=== PATIENT | female | born 1955 | race Caucasian/White ===

== ENCOUNTER 2023-01-05 18:25 | Emergency (ER) | payer MEDICARE, SELFPAY ==
[2023-01-05 18:35] VITALS: BP 150/88; PULSE 96; RESP 20; TEMP 38.7; O2SAT 100
--- NOTE | 2023-01-05 18:37 | ED.FEMALEGU ---
HPI - Female Genitourinary General Chief complaint: Urogenital-Female Stated complaint: Back pain; fever; polyuria; dysuria Time Seen by Provider: 01/05/23 18:38 History of Present Illness HPI Narrative: patient presents with symptom of urinary tract infection dysuria frequent urination urinary urgency no flank pain no gross hematuria no pelvic pain . Patient states she has been feeling bad for 4 weeks. Patient denies a history of kidney stones but does have bilateral flank pain at times. That radiates around to the abdomen. Related Data Home Medications Medication Instructions Recorded Confirmed metoprolol tartrate 50 mg tablet 50 mg PO BID 01/05/23 01/05/23 Allergies Allergy/AdvReac Type Severity Reaction Status Date / Time No Known Allergies Allergy Verified 01/05/23 18:37 Review of Systems Review of Systems: CONSTITUTIONAL: Denies fever, chills, or sweats. EYES: Denies visual changes, redness, or discharge. ENT: Denies rhinorrhea, congestion, sore throat, or otalgia. CARDIOVASCULAR: Denies chest pain, palpitations, or edema. RESPIRATORY: Denies cough or dyspnea. GASTROINTESTINAL: Denies abdominal pain, nausea, vomiting, or diarrhea. GENITOURINARY: Denies dysuria or hematuria. SKIN: Denies rash or itching. MUSCULOSKELETAL: Denies back pain, joint pain, or myalgia. NEUROLOGIC: Denies headache, numbness, or weakness. PSYCHIATRIC: Denies anxiety or depression. PMFSH Comments At time of signature, agree with nursing past medical, surgical, social and family history. There is no relevant family history pertinent to the presenting complaint Exam Narrative: GENERAL: Well-appearing, well-nourished, and in no acute distress. HEAD: Normocephalic, atraumatic. EYES: PERRLA and EOMI. ENT: Nares clear, no rhinorrhea or epistaxis. Mucous membranes moist. NECK: Supple. CHEST: Clear to auscultation. No respiratory distress. HEART: Regular rate and rhythm. No murmur heard. Normal peripheral pulses. ABDOMEN: Soft, nontender, nondistended, normal active bowel sounds. left sided flank pain that radiates to llq. patient carol lizarraga to emergency department discussed s/s to monitor for kidney stone and to strain all urine. EXTREMITIES: Normal range of motion. No edema. SKIN: Warm, dry, no rash. NEURO: No focal deficits. Alert and oriented x3. [place] Coma Scale Eye Opening: Spontaneous 4 [place] Coma Scale Motor: Obeys Commands 6 [place] Coma Scale Verbal: Oriented 5 [place] Coma Scale Total 15 Course Course Level of Care: Express Care Visit Vital Signs Vital signs: Vital Signs Temperature 38.7 C H 01/05/23 18:35 Pulse Rate 96 01/05/23 18:35 Respiratory Rate 20 01/05/23 18:35 Blood Pressure 150/88 H 01/05/23 18:35 Pulse Oximetry 100 01/05/23 18:35 Oxygen Delivery Room Air 01/05/23 18:35 Temperature 38.7 C H 01/05/23 18:35 Pulse Rate 96 01/05/23 18:35 Respiratory Rate 20 01/05/23 18:35 Blood Pressure 150/88 H 01/05/23 18:35 Pulse Oximetry 100 01/05/23 18:35 Oxygen Delivery Room Air 01/05/23 18:35 Please FLAQUITO schedule a followup visit with your personal physician for further evaluation and treatment. Including recheck and discussion of your blood pressure. If your symptoms persist, change or worsen significantly before you can contact your personal physician then please, without delay, go to the emergency department for further evaluation Discussed with patient hypertension. Today's blood pressure higher than recommended range. Discussed importance of follow -up with PCP and CV events related to HTN. Currently patient denies headache, vision changes, CP or shortness of breath. Patient states she has not taken her blood pressure medication yet today. Patient states usually takes it at night. Patient declines transfer to emergency room at this time. Patient states she will follow-up with her primary care provider and if symptoms become worse she will go the emergency room f
== END 2023-01-05 19:00 | disposition home or self-care (01) ==
PROVIDERS: Emergency Provider Nurse Practitioner Family; PCP Nurse Practitioner Family
DX: N39.0 Urinary tract infection, site not specified (principal); I10 Essential (primary) hypertension; E03.9 Hypothyroidism, unspecified
CPT/HCPCS: 81003; 87086; 99203; G0463

== ENCOUNTER 2025-05-20 13:09 | Emergency (ER) | payer MEDICARE, SELFPAY ==
--- OUTSIDE RECORDS SUMMARY | 2025-05-20 13:12 | XMS_ITS | Clinical Summary ---
Author Organization [address] Address [address] [place] [phone] Care Team Providers Care Stabilizing Machine Operator Name Role Phone Sasha Haile Primary Care Prov ider Allergies Active Allergy Reactions Criticality Noted Date Comments Lisinopril Swelling Medium 07/13/2018 Swelling of face Medications levothyroxine (SYNTHROID, LEVOTHROID) 150 mcg tablet Take 125 mcg by mouth restaurant operations manager before breakfast Active metoprolol (LOPRESSOR) 50 mg tablet Take 1 tablet (50 mg total) by mouth daily Active albuterol HFA (PROVENTIL HFA,VENTOLIN HFA,PROAIR HFA) 90 mcg/actuation inhaler 2 puffs every 4 (four) hours as needed 2 Active Eliquis 5 mg tablet TAKE 1 TABLET BY MOUTH TWICE DAILY FOR AFIB 3 Active benzocaine-menthoL 15-2.6 mg lozenge 1 lozenge every 4 (four) hours as needed 8 Active omeprazole (PriLOSEC) 20 mg capsule Take 1 capsule (20 mg total) by mouth daily As needed 3 Active ondansetron ODT (ZOFRAN-ODT) 4 mg disintegrating tablet 3 Active polyethylene glycol (MIRALAX) 17 gram/dose powder Take 17 g by mouth 2 (two) times a day as needed 3 Active senna (SENOKOT) 8.6 mg tablet Take 8.6 mg by mouth 2 (two) times a day as needed 3 Active Active Problems Problem Noted Date Diagnosed Date Regular check-up 08/20/2023 Paroxysmal atrial fibrillation 08/20/2023 Hypertension 01/28/2023 Graves disease 01/28/2023 Dysphagia 01/28/2023 Overview (01/28/2023): Added automatically from request for surgery [id number] Screening for colon cancer 01/28/2023 Overview (01/28/2023): Added automatically from request for surgery [id number] Abdominal pain 01/16/2023 Assessment & Plan (01/28/2023 2:17 PM CDT): Screening colonoscopy and egd Pancreatic cyst 01/16/2023 Urinary tract infection 01/16/2023 Atrial fibrillation with RVR 01/15/2023 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 (02/15/2017): TOX DIF GOITER NO CRISIS Menopausal and postmenopausal disorder 4 Overview (02/14/2017): MENOPAUSAL DISORDER NOS Anxiety state 03/27/2014 Overview (02/15/2017): ANXIETY STATE NOS Postablative hypothyroidism 03/27/2014 Overview (02/15/2017): POSTABLAT HYPOTHYR NEC Surgical History Surgery Date Site/Laterality Comments HYSTERECTOMY 1985 Hysterectomy COLOSTOMY 02/08/2023 Medical History Medical History Date Comments Thyroid disease Hypertension Family History Medical History Relation Name Comments Anuerysm Father Aneurysm; Other Father ; Cause of : Heart failure Mother Congestive hea rt failure; Cause of : Congestive heart failure Thyroid disease Other 1 Family histo ry of Thyroid disorder; Other Other 2 No family histo ry of Coronary artery disease; Other Other 3 No family histo ry of Diabetes mellitus; Other Other 4 No family histo ry of Stroke; Other Other 5 No family histo ry of Cancer; Relation Name Status Comments Father (Age 96) Mother (Age 80) Other 1 Other 2 Other 3 Other 4 Other 5 Social History Tobacco Use Types Packs/Day Years Used Date Smoking Tobacco: Former Cigarettes Smokeless Tobacco: Never Tobacco Cessation:Counseling Given: Not Answered Alcohol Use Standard Drinks/Week Comments Yes 0 (1 standard drink = 0.6 oz pur e alcohol) AUDIT-C Answer Date Recorded Q1: How often do you have a drink containing alc ohol? Monthly or less 10/27/2024 Q2: How many drinks containi ng alcohol do you have on a typical day when you are drinking? 1 or 2 10/27/2024 Q3: How often do you have si x or more drinks on one occasion? Less than monthly 10/27/2024 Personal Safety Answer Date Recorded Have you ever been in or are you currently in a harmful physical or emotional relationship or is someone making you feel afraid or unsafe? Denies 02/08/2023 Comments Unknown Sex and Gender Information Value Date Recorded Sex Assigned at Not on file Legal Sex Female 12:49 AM POLITICAL CONSULTANT Gender Identity Not on file Sexual Orientation Not on file Obstetrics History Last Filed Vital Signs Vital Sign Reading Time Taken Comments Blood Pressure 112/73 12/22/2024 10:04 AM POLITICAL CONSULTANT Pulse 60 12/22/2024 10:04 AM POLITICAL CONSULTANT Temperature 36.8 C (98.3 F) 02/08/2023 11:29 AM CDT Respiratory Rate 16 03/28/2023 9:45 AM CDT Oxygen Saturation 98% 03/28/2023 9:45 AM CDT Inhaled Oxygen Concentration - - Weight 64.9 kg (143 lb) 12/22/2024 10:04 AM POLITICAL CONSULTANT Height 176.5 cm (5' 9.5) 12/22/2024 10:04 AM CS T Body Mass Index 20.81 12/22/2024 10:04 AM POLITICAL CONSULTANT Plan of Treatment Health Maintenance Due Date Last Done Comments Breast Cancer Screening-Mammogram 1955 Depression Screening 1955 Hepatitis C Screening 1955 Hepatitis B Screening 1975 Pneumococcal vaccine 65+ (1 of 1 - PCV) 2007 Zoster Vaccine (1 of 2) 2007 DTaP/Tdap/Td Vaccine (2 - Td or Tdap) 11/11/202111/2011 Well Visit 65+ 2022 Fall Risk Assessment 02/09/2024 02/08/2023 Influenza Vaccine (Season Ended) 2025 Osteoporosis Screening-Bone Density Scan 10/06/2026 10/06/2024, 10/06/2024 Colon Cancer Screening-Colonoscopy 02/08/20332022 Colon Cancer Screening-CT Colonography Discontinued Colon Cancer Screening-DNA Stool Discontinued 02/09/20 Colon Cancer Screening-FIT Discontinued 02/08/2023 Colon Cancer Screening-Sigmoidoscopy Discontinued 01/11 Procedures Procedure Name Priority Date/Time Associated Diagnosis Comments COLONOSCOPY 02/08/2023 9:54 AM CDT from Last 3 Months or Most Recently Relevant to Health Maintenance Results * COLONOSCOPY (02/08/2023 9:54 AM CDT) Anatomical Region Laterality Modality Other Narrative Procedure Note Job Joyner MD - 02/08/2023 9:54 AM CDT [facility] Patient Name: Sully Martines Procedure Date: 02/08/2023 9:54 AM Date of : 1955 Admit Type: Outpatient Age: 67 Gender: Female Attending MD: Job Joyner M.D. Room: [facility] ENDOSCOPY ROOM 2 Note Status: Finalized Patient Profile: Refer to note in patient chart for documentation of history and physical. Procedure: Colonoscopy Indications: Screening for colorectal malignant neoplasm, Thisis the patient's first colonoscopy Referring MD: Manjula Contreras NP Providers: Job Joyner M.D. Impression: - Hemorrhoids found on perianal exam. - One 5 mm polyp in the descending colon, removedwith a cold snare. Resected and retrieved. - Diverticulosis in the sigmoid colon. - The examination was otherwise normal. Recommendation: - Discharge patient to home. - Resume previous diet. - Continue present medications. - Resume Eliquis (apixaban) at prior dose in 5days. - [facility] - Return to primary care physician as previously scheduled. Medicines: Propofol total dose mg IV, Propofol perAnesthesia Complications: No immediate complications. Estimated Blood Loss: Estimated blood loss: none. Procedure: Pre-Anesthesia Assessment: - This assessment was completed [Time ofAssessment] prior to the administration of sedation. The benefits, risks and alternatives of theprocedure and sedation were discussed and informed consentwas obtained. All questions were answered. Please referto the signed informed consent document in the medical record. The bowel preparation used was Miralax via split dose instruction. The bowel preparation usedwas bisacodyl tablets via split dose instruction. The scope was passed under direct vision. TheColonoscope [id number] was introduced through the anus and advanced to the the cecum, identified by appendiceal orifice and ileocecal valve. The colonoscopy was performed without difficulty. The patient tolerated the procedure well. The qualityof the bowel preparation was good. The ileocecalvalve, appendiceal orifice, and rectum werephotographed. Findings: Hemorrhoids were found on perianal exam. A 5 mm polyp was found in the descending colon. The polyp wassessile. The polyp was removed with a cold snare. Resection and retrieval were complete. Verification of patient identification for the specimen was done by the physician and nurse using the patient's name and birthdate. Estimated blood loss was minimal. Multiple small-mouthed diverticula were found in the sigmoid colon. The exam was otherwise without abnormality. Electronically signed by Job Joyner M.D. Job Joyner M.D. 02/08/2023 11:00:43 AM Number of Addenda: 0 Note Initiated On: 02/08/2023 9:54 AM Procedure Code(s): --- Professional --- 66122, Colonoscopy, flexible; with removal of tumor(s), polyp(s), or other lesion(s) by snare technique --- Technical --- 54336, Colonoscopy, flexible; with removal of tumor(s), polyp(s), or other lesion(s) by snare technique Diagnosis Code(s): --- Professional --- K57.30, Diverticulosis of large intestine without perforation orabscess without bleeding D12.4, Benign neoplasm of descending colon K64.9, Unspecified hemorrhoids Z12.11, Encounter for screening for malignant neoplasm of colon --- Technical --- K57.30, Diverticulosis of large intestine without perforation orabscess without bleeding D12.4, Benign neoplasm of descending colon K64.9, Unspecified hemorrhoids Z12.11, Encounter for screening for malignant neoplasm of colon CPT copyright 2020 [employer]. All rights reserved. The codes documented in this report are preliminary and upon human resources department supervisor reviewmay be revised to meet current compliance requirements. Recognized by the [place] [employer] for promoting quality in endoscopy Job Joyner MD ENDOSCOPY PROCEDURES Final Re sult from Last 3 Months or Most Recently Relevant to Health Maintenance Insurance [facility] MEDICARE ADVANTAGE Advance Directives For more information, please contact: [phone] * Full Code (Latest Code Status on File) Date Activated Date Inactivated Comments 02/08/2023 9:46 AM 02/08/2023 3:56 PM * Full Code Date Activated Date Inactivated Comments 02/08/2023 9:46 AM 02/08/2023 9:46 AM Care Teams Stabilizing Machine Operator Relationship Specialty Start Date End Date Sasha Haile PA [address] [address] PCP - General Neurosurgery 01/22/25
--- OUTSIDE RECORDS SUMMARY | 2025-05-20 13:12 | XMS_ITS | Encounter Summary ---
Author Organization [facility] Address [address] [place] [address] Phone Care Team Providers Care Valve Fitter Name Role Phone Des York MD Unavailable Sasha Haile PAC Primary Care Pro vider Kalee Escoto APRN, MAT PACKER Unavailable Reyes Moralez MD Unavailable Reason for Visit * Reason Comments Medication Refill Encounter Details Date Type Department Care Team (Late st Contact Info) Description 02/25/2024 Refill [facility] - Internal Medicine - [place] [address] [place] [address] Sasha Haile, PAC [address] [place] [address] Medication Refill Social History Tobacco Use Types Packs/Day Years Used Date Smoking Tobacco: Never Smokeless Tobacco: Never Alcohol Use Standard Drinks/Week Comments Yes 0 (1 standard drink = 0.6 oz pur e alcohol) RARE PHQ-2 Answer Date Recorded Total Score - Questions 1-9 3 01/09 Comments No Sex and Gender Information Value Date Recorded Sex Assigned at Not on file Legal Sex Female 8:04 PM CDT Gender Identity Not on file Sexual Orientation Not on file documented as of this encounter Miscellaneous Notes * Telephone Encounter - Elda Gomez RN - 02/25/2024 10:27 AM CDT Medication failed the protocol, provider to review and approve the medication order if appropriate. Requested Prescriptions Pending Prescriptions Disp Refills busPIRone (BUSPAR) 5 MG Tablet [Pharmacy Med Name: busPIRone HCl 5 MG Oral Tablet] 60 Tablet 0 Sig: Take 1 Tablet by mouth in the morning and at bedtime. Buspirone (6 Month Refill Only) Protocol Failed - 02/25/2024 9:35 AM Failed - Patient has established therapy with Buspirone for at least 6 months Passed - Visit with relevant provider in past 6 months or upcoming 90 days Recent Visits Date Type Provider Dept 01/20/24 Office Visit Sasha Haile PAC [facility] Showing recent visits within past 182 days and meeting all other requirements Future Appointments Date Type Provider Dept 02/27/24 Appointment Sasha Haile PAC [facility] Showing future appointments within next 90 days and meeting all other requirements Passed - Has an encounter in the past 6 months with a depression or anxiety visit diagnosis documented in this encounter Plan of Treatment Upcoming Encounters Date Type Department Care Team (Late st Contact Info) Description 07/21/2025 10:45 AM CDT Office Visit [facility] - Internal Medicine - [place] [address] [place] [address] Sasha Haile PAC [address] [place] [address] documented as of this encounter Visit Diagnoses Not on filedocumented in this encounter Additional Health Concerns Assessment Noted Time PHQ-9 Depression Total Score: 3 01/20/20 24 11:11 AM CDT documented as of this encounter Care Teams Valve Fitter Relationship Specialty Start Date End Date Sasha Haile PAC [address] [place] [address] PCP - General Physician Shipping Manager 01/20/24 Des York MD [address] [address] Consulting Physician Endocrinology 08/28/23 Kalee Escoto APRN, MAT PACKER [address] [place] [address] Nurse Practitioner Advanced Practice Nurse 09/08/24 Reyes Moralez MD [address] [address] Consulting Physician General Surgery 01/20/25 documented as of this encounter
--- OUTSIDE RECORDS SUMMARY | 2025-05-20 13:12 | XMS_ITS | Referral Summary ---
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 Active metoprolol (LOPRESSOR) 50 mg [...] 2 (two) times a day as needed 03/09/202 3 Active Active Problems Problem Noted Date Diagnosed Date Regular check-up 08/20/2023 Paroxysmal atrial fibrillation 08/20/2023 Hypertension 01/28/2023 Graves disease 01/28/2023 Dysphagia 01/28/2023 Overview (01/28/2023): Added automatically from request for surgery [id number] Screening for colon cancer 01/28/2023 Overview (01/28/2023): Added automatically from request for surgery [id number] Abdominal pain 01/16/2023 Assessment & Plan (01/28/2023 2:17 PM CDT): Screening colonoscopy and egd Pancreatic cyst 01/16/2023 Urinary tract infection 01/16/2023 Atrial fibrillation with RVR 01/15/2023 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 (02/15/2017): TOX DIF GOITER NO CRISIS Menopausal and postmenopausal disorder 4 Overview (02/14/2017): MENOPAUSAL DISORDER NOS Anxiety state 03/27/2014 Overview (02/15/2017): ANXIETY STATE NOS Postablative hypothyroidism 03/27/2014 Overview (02/15/2017): POSTABLAT HYPOTHYR NEC Social History Tobacco Use Types Packs/Day Years [...] on file Legal Sex Female 12:49 AM [facility] Gender Identity Not on file Sexual Orientation Not on file Last Filed Vital Signs Vital Sign Reading Time Taken Comments Blood Pressure 112/73 12/22/2024 10:04 AM [facility] Pulse 60 12/22/2024 10:04 AM [facility] Temperature 36.8 C (98.3 F) 02/08/2023 11:29 AM CDT Respiratory Rate 16 03/28/2023 9:45 AM CDT Oxygen Saturation 98% 03/28/2023 9:45 AM CDT Inhaled Oxygen Concentration - - Weight 64.9 kg (143 lb) 12/22/2024 10:04 AM [facility] Height 176.5 cm (5' 9.5) 12/22/2024 10:04 AM CS T Body Mass Index 20.81 12/22/2024 10:04 AM [facility] Plan of Treatment Not on file Procedures Procedure Name Priority Date/Time Associated Diagnosis [...] Female Attending MD: Job Joyner M.D. Room: [facility] ENDOSCOPY ROOM 2 Note Status: Finalized [...] 5days. - Repeat colonoscopy in 10 years forsurveillance. - Return to primary care physician as [...] scope was passed under direct vision. TheColonoscope [id number] was introduced through the anus and advanced [...] 9:54 AM Procedure Code(s): --- Professional --- 73084, Colonoscopy, flexible; with removal of tumor(s), polyp(s), or other lesion(s) by snare technique --- Technical --- 44666, Colonoscopy, flexible; with removal of tumor(s), polyp(s), [...] for malignant neoplasm of colon CPT copyright 202 [employer]. All rights reserved. The codes documented in this report are preliminary and upon health information coder reviewmay be revised to meet current compliance requirements. Recognized by the [place] [employer] for promoting quality in endoscopy Job Joyner MD ENDOSCOPY PROCEDURES Final Re sult from Last 3 Months or Most Recently Relevant to Health Maintenance Insurance [facility] MEDICARE ADVANTAGE Advance Directives For more information, please contact: [phone] * Full Code (Latest Code Status on File) Date Activated Date Inactivated Comments 02/08/2023 9:46 AM 02/08/2023 3:56 PM * Full Code Date Activated Date Inactivated Comments 02/08/2023 9:46 AM 02/08/2023 9:46 AM Care Teams Creel Hand Relationship Specialty Start Date End Date Sasha Haile PA [address] [address] PCP - General Neurosurgery 01/22/25
--- OUTSIDE RECORDS SUMMARY | 2025-05-20 13:12 | XMS_ITS | Encounter Summary ---
Author Organization [facility] Address [address] [place] [address] Phone Care Team Providers Care Starch Mangle Tender Name Role Phone Des York MD Unavailable Sasha Haile PAC Primary Care Pro vider Kalee Escoto APRN, CNP Unavailable Reyes Moralez MD Unavailable Reason for Visit * Reason Onset Date Comments Medication Refill 05/20/2025 Encounter Details Date Type Department Care Team (Late st Contact Info) Description 05/20/2025 Refill [facility] - [place] [address] [place] [address] Sasha Haile, [facility] [address] [place] [address] Medication Refill Social History Tobacco Use Types Packs/Day Years Used Date Smoking Tobacco: Former Cigarettes 2 - 2003 Smokeless Tobacco: Never Alcohol Use Standard Drinks/Week Comments Yes 1 (1 standard drink = 0.6 oz pur e alcohol) 3 times a week [facility] Utilities Answer Date Recorded In the past 12 months has [employer], gas, oil, or water company threatened to shut off services in your home? No 01/12/2025 Social Connection and Isolation Panel Answer Date Recorded In a typical week, how many times do you talk on the phone with family, friends, or neighbors? Never 01/12/2025 Frequency of Social Gatherings with Friends and Family Not on file 01/12/2025 Attends Yazidi Services Not on file 01/12 Active Member of Clubs or Organizations Not on f ile 01/12/2025 Attends Club or Organization Meetings Not on tona e 01/12/2025 Marital Status Not on file 01/12/2025 AUDIT-C Answer Date Recorded Q1: How often do you have a drink containing alc ohol? 2-4 times a month 01/12/2025 Average Number of Drinks Not on file 025 Frequency of Binge Drinking Not on file 02/2025 Overall Financial Resource Strain (CARDIA) Answe r Date Recorded How hard is it for you to pa y for the very basics like food, housing, medical care, and heating? Not very hard 01/12/2025 PHQ-2 Answer Date Recorded Total Score - Questions 1-9 0 07/2024 [facility] - Occupational Stress Questionnaire Answer Date Recorded Do you feel stress - tense, restless, nervous, or anxious, or unable to sleep at night because your mind is troubled all the time - these days? Not at all 01/12/2025 Exercise Vital Sign Answer Date Recorde d On average, how many days pe r week do you engage in moderate to strenuous exercise (like a brisk walk)? 5 days Minutes of Exercise per Session Not on file 01/12/2025 Hunger Vital Sign Answer Date Recorded Within the past 12 months, y ou worried that your food would run out before you got the money to buy more. Never true 01/13/20 25 Ran Out of Food in the Last Year Not on file 01/12/2025 PRAPARE - Transportation Answer Date Re corded In the past 12 months, has l ack of transportation kept you from medical appointments or from getting medications? No 01/12/2025 Lack of Transportation (Non-Medical) Not on file 01/12/2025 Housing Stability Vital Sign Answer Reagan e Recorded In the last 12 months, was t here a time when you were not able to pay the mortgage or rent on time? No 01/12/2025 In the past 12 months, how m any times have you moved where you were living? 0 01/12/2025 At any time in the past 12 m [facility], were you homeless or living in a alf (including now)? No 01/12/2025 Comments No Sex and Gender Information Value Date Recorded Sex Assigned at Not on file Legal Sex Female 8:04 PM CDT Gender Identity Not on file Sexual Orientation Not on file documented as of this encounter Miscellaneous Notes * Telephone Encounter - Elda Gomez RN - 05/20/2025 1:09 PM CDT Per nursing clinical judgement, provider to review and approve the medication(s) order(s) if appropriate. Requested Prescriptions Pending Prescriptions Disp Refills metoprolol tartrate (LOPRESSOR) 50 MG Tablet 180 Tablet 0 Sig: Take 1 Tablet by mouth daily. Beta-Blockers Protocol Passed - 05/20/2025 1:09 PM Passed - BP on record in the past year Clinician-entered: BP Readings from Last 3 Encounters: 01/20/25 (!) 160/100 01/12/25 124/68 10/14/24 124/83 Patient-entered: No data recorded Passed - Visit with relevant provider in past 12 months or upcoming 90 days Recent Visits Date Type Provider Dept 01/12/25 Office Visit Sasha Haile, PAC [facility] [place] 09/29/24 Office Visit Sasha Haile, PAC [facility] [place] 09/23/24 Office Visit Sasha Haile, PAC [facility] [place] 08/19/24 Office Visit Sasha Haile, PAC [facility] [place] Showing recent visits within past 365 days and meeting all other requirements Future Appointments Date Type Provider Dept 07/21/25 Appointment Sasha Haile, PAC [facility] [place] Showing future appointments within next 90 days and meeting all other requirements * Telephone Encounter - Keshia Moreland - 05/20/2025 12:55 PM CDT Med rf Medication - Metoprolol Phone - [phone] [place] [facility] [place] encounter Plan of Treatment Upcoming Encounters Date Type Department Care Team (Late st Contact Info) Description 07/21/2025 10:45 AM CDT [facility] [address] [place] [phone] Sasha Haile, PAC [address] [place] [address] documented as of this encounter Visit Diagnoses Not on filedocumented in this encounter Additional Health Concerns Assessment Noted Time PHQ-9 Depression Total Score: 0 08/19/20 12:59 PM CDT documented as of this encounter Care Teams Starch Mangle Tender Relationship Specialty Start Date End Date Sasha Haile, PAC [address] [place] [address] PCP - General Physician [employer] Vice President 01/20/24 Des York MD [address] [phone] Consulting Physician Endocrinology 08/28/23 Kalee Escoto APRN, BLANKET WASHER [address] [place] [address] Nurse Practitioner Advanced Practice Nurse 09/08/24 Reyes Moralez MD [address] [phone] Consulting Physician General Surgery 01/20/25 documented as of this encounter
--- OUTSIDE RECORDS SUMMARY | 2025-05-20 13:12 | XMS_ITS | Encounter Summary ---
Author Organization [facility] Address [address] [place] [address] Phone Care Team Providers Care Log Turner Name Role Phone Des York MD Unavailable Sasha Haile PAC Primary Care Pro vider Kalee Escoto APRN, SURVEY DIRECTOR Unavailable Reyes Moralez MD Unavailable Reason for Visit * Reason Comments Medication Refill Encounter Details Date Type Department Care Team (Late st Contact Info) Description 04/11/2024 Refill [facility] - Internal [facility] - [place] [address] [place] [address] Sasha Haile, PAC [address] [facility] [place] [address] Medication Refill Social History Tobacco [...] Telephone Encounter - Elda Gomez RN - 04/13/2024 9:20 AM CDT Medication failed the protocol, provider to review and approve the medication order if appropriate. Requested Prescriptions Pending Prescriptions Disp Refills buPROPion (WELLBUTRIN) 150 MG XL tablet [Pharmacy Med Name: buPROPion HCl ER (XL) 150 MG Oral Tablet Extended Release 24 Hour] 90 Tablet 0 Sig: TAKE 1 TABLET BY MOUTH ONCE DAILY IN THE MORNING Bupropion (6 Month Refill Only) Protocol Failed - 04/11/2024 5:29 PM Failed - Patient has established therapy with Bupropion for at least 6 months Passed - Visit with relevant provider in past 6 months or upcoming 90 days Recent Visits Date Type Provider Dept 02/27/24 Office Visit Sasha Haile PAC [facility] 01/20/24 Office Visit Sasha Haile, [place] [facility] [place] Showing recent visits within past 182 days and meeting all other requirements Future Appointments No visits were found meeting these conditions. Showing future appointments within next 90 days and meeting all other requirements Passed - Has an encounter in the past 6 months with a depression or anxiety visit diagnosis documented in this encounter Plan of Treatment Upcoming Encounters Date Type Department Care Team (Late st Contact Info) Description 07/21/2025 10:45 AM CDT Office Visit [facility] - Internal Medicine [place] [address] [place] [address] Sasha Haile PAC [address] [place] [address] documented as of this encounter Visit Diagnoses Not on filedocumented in this encounter Additional Health Concerns Assessment Noted Time PHQ-9 Depression Total Score: 3 01/20/20 24 11:11 AM CDT documented as of this encounter Care Teams Log Turner Relationship Specialty Start Date End Date Sasha Haile PAC [address] [place] [address] PCP - General Physician Data Analyst Report Writer 01/20/24 Des York MD [address] [phone] Consulting Physician Endocrinology 08/28/23 Kalee Escoto APRN, SURVEY DIRECTOR [address] [place] [address] Nurse Practitioner Advanced Practice Nurse 09/08/24 Reyes Moralez MD [address] [phone] Consulting Physician General Surgery 01/20/25 documented as of this encounter
--- OUTSIDE RECORDS SUMMARY | 2025-05-20 13:12 | XMS_ITS | Clinical Summary ---
Author Organization [facility] Address [address] [place] [address] Phone Care Team Providers Care Life Sciences Instructor Name Role Phone Des York MD Unavailable Sasha Haile PAC Primary Care Pro vider Kalee Escoto APRN, VOCATIONAL SCHOOL TEACHER Unavailable Reyes Moralez MD Unavailable Allergies Active Allergy Reactions Criticality Noted Date Comments Lisinopril Swelling 07/13/2018 Swelling of face Wound Dressing Adhesive Unknown 09/08/2024 Medications metoprolol tartrate (LOPRESSOR) 50 MG Tablet Take 50 mg by mouth daily. Active omeprazole (PriLOSEC) 20 MG CAPSULE DELAYED RELEASE Take 1 Capsule by mouth daily. 90 Capsule 3 4 Active sucralfate (CARAFATE) 1 GM TabletIndication s:Gastroesophage al reflux disease, unspecified whether esophagitis present Take 1 Tablet by mouth 3 times daily. 90 Tablet 1 5 Active buPROPion (WELLBUTRIN) 150 MG XL tablet TAKE 1 TABLET BY MOUTH ONCE DAILY IN THE MORNING 90 Tablet 5 Active ondansetron (ZOFRAN-ODT) 4 MG TABLET DISPERSIBLE DISSOLVE 1 TABLET IN MOUTH EVERY 8 HOURS NEEDED FOR NAUSEA-1ST LINE 30 Tablet 5 Active levothyroxine (SYNTHROID) 125 MCG Tablet Take 1 tablet by mouth once daily 90 Tablet 5 Active Active Problems Problem Noted Date Diagnosed Date Screening breast examination 01/12/2025 Overview (01/12/2025): Refusing mammograms Pain in both hands 01/12/2025 Overview (01/12/2025): Followed by ortho Getting injections Hiatal hernia 01/20/2024 Abdominal pain 01/16/2023 Pancreatic cyst 01/16/2023 Overview (01/20/2024): GI follows Urinary tract infection 01/16/2023 COVID-19 virus infection 01/16/2023 Atrial fibrillation with RVR 01/15/2023 Overview (01/20/2024): Resolved CARDIO has followed Eliquis refused Graves disease Overview (01/20/2024): ENDO follows Dr York Hypertension Encounters Date Type Department Care Team Description 05/20/[facility] [address] [place] [address] Sasha Haile, PAC Medication Refill 05/20/2025 [facility] [address] [place] [phone] Sasha Haile, PAC Advice Only 05/19/2025 Telephone [facility] [address] [place] [phone] Sasha Haile, PAC Medication Refill 05/06/2025 Documentation Only [facility] [address], [place] [address] [place] [phone] Selma Valles, OT 04/11/2025 [facility] [address] [place] [phone] Sasha Haile, PAC Medication Refill 04/06/2025 Refill [facility] [place] [address] [facility] [place] [phone] Sasha Haile, PAC Medication Refill 04/01/2025 Refill [facility] - Internal Medicine - [place] [address] [phone] Jere Mulligan MD Medication Refill 02/24/2025 Telephone [facility] - Gastroenterology - [place] [address] [place] [address] Kalee Escoto, POLICE COMMISSIONER, VOCATIONAL SCHOOL TEACHER Results from Last 3 Months Immunizations Immunization Administration Dates Next Due TDAP Vaccine 11/11/2011 Family History Medical History Relation Name Comments No Known Problems Brother No Known Problems Father No Known Problems Mother No Known Problems Sister 1 No Known Problems Sister 2 No Known Problems Sister 3 No Known Problems Sister 4 Relation Name Status Comments Brother Alive Father Maternal Grandfather Maternal Grandmother Mother Paternal Grandfather Paternal Grandmother Sister 1 Sister 2 Alive Sister 3 Alive Sister 4 Alive Son Alive Social History Tobacco Use Types Packs/Day Years Used Date Smoking Tobacco: Former Cigarettes 2 - 2003 Smokeless Tobacco: Never Tobacco Cessation:Counseling Given: Not Answered Alcohol Use Standard Drinks/Week Comments Yes 1 (1 standard drink = 0.6 oz pur e alcohol) 3 times a week [facility] Utilities Answer Date Recorded In the past 12 months has e [employer] gas, oil, or water [employer] threatened to shut off services in your [...] Average Number of Drinks Not on file Frequency of Binge Drinking Not on file 02/2025 Overall Financial Resource Strain (CARDIA) Answe r Date Recorded How hard is it for you to pa y for the very basics like food, housing, medical care, and heating? Not very hard 01/12/2025 PHQ-2 Answer Date Recorded Total Score - Questions 1-9 0 07/2024 [facility] - Occupational Stress [...] any time in the past 12 m [facility], were you homeless or living in a long-term (including now)? No 01/12/2025 Comments No Sex and Gender Information Value Date Recorded Sex Assigned at Not on file Legal Sex Female 8:04 PM CDT Gender Identity Not on file Sexual Orientation Not on file Last Filed Vital Signs Vital Sign Reading Time Taken Comments Blood Pressure 160/100 01/20/2025 1:18 PM CDT Pulse 63 01/20/2025 1:18 PM CDT Temperature 36.2 C (97.2 F) 01/20/2025 1:18 PM CDT Respiratory Rate 16 01/20/2025 1:18 PM CDT Oxygen Saturation 100% 01/20/2025 1:18 PM CDT Inhaled Oxygen Concentration - - Weight 63.5 kg (140 lb) 01/20/2025 1:18 PM CDT Height 179.7 cm (5' 10.75) 01/20/2025 1:18 PM C DT Body Mass Index 19.66 01/20/2025 1:18 PM CDT Plan of Treatment Upcoming Encounters Date Type Department Care Team (Late st Contact Info) Description 07/21/2025 10:45 AM CDT [facility] Visit [facility] - [place] [address] [place] [address] Sasha Haile, [facility] [address] [place] [address] Health Maintenance Due Date Last Done Comments Hepatitis C Virus (HCV) Screening 1957 SARS-COV-2 Immunization (#1) 1962 Zoster Immunization (1 of 2) 1976 Cologuard 2002 Immunochemical Fecal Occult Blood 2002 Td Immunization Every 10 Yea rs (Adults With 1 Tdap) 11/11/2021 11/11/2011 Influenza Immunization (#1) 2025 DEXA Bone Density 10/06/2026 10/06/2024 Respiratory Syncytial Virus (RSV) Immunization (Adult) (1 - 1-dose 75+ series) 2032 Colonoscopy 02/08/2033 02/08/2023 Colorectal Cancer Screening 02/08/2033 DTaP/Tdap/Td Immunization Discontinued 11/11/2011 Hepatitis B Immunization Aged Out No longer eligible based on patient's age to complete this topic Human Papillomavirus (HPV) Immunization Aged Out No longer eligible b ased on patient's age to complete this topic Mammogram Discontinued Meningococcal Immunization (ACWY) Aged Out No longer eligible based on patient's age to complete this topic Pneumococcal Immunization (5 0+ years) Discontinued Rotavirus Immunization Aged Out No lo nger eligible based on patient's age to complete this topic Procedures Procedure Name Priority Date/Time Associated Diagnosis Comments [facility] BONE DENSITOMETRY AXIAL SKELETON Routine 10/06/2024 8:44 AM DIRECTOR CALL Post-menopausal from Last 3 Months or Most Recently Relevant to Health Maintenance Results * [facility] BONE DENSITOMETRY AXIAL SKELETON (10/06/2024 8:44 AM DIRECTOR CALL) Anatomical Region Laterality Modality BODY N/A Computed Radiogr aphy 10/06/2024 5:16 PM DIRECTOR CALL Impressions 10/06/2024 5:18 PM DIRECTOR CALL IMPRESSION: Normal bone mass. REFERENCE: Bone mineral density: T-Score: Normal (T-score above or = -1.0) Low bone mass (T-score between -1.0 and -2.5) replaces the previously used term osteopenia Osteoporosis (T-score = or below -2.5) Z-Score: Within the expected range for age (Z-score above -2.0) Below the expected range for age (Z-score is -2.0 or below) Please see below follow up recommendations. Medical evaluation for secondary causes of low bone mineral density may be appropriate. FRAX is a World Health Organization validated fracture risk assessment tool that calculates a person's 10 year probability of a major osteoporosis related fracture and hip fracture. According to the National Osteoporosis Foundation guidelines, postmenopausal women and men age 50 or older with low bone mass and a 10 year probability of a major osteoporosis related fracture = or greater than 20% or a 10 year probability of a hip fracture = or greater than 3% should be considered for pharmacological treatment for the prevention of osteoporosis. For further information, including treatment recommendations, please refer to the 2019 ISCD Official Positions (http://www.iscd.org) and the NOF's Clinician's Guide to Prevention and Treatment of Osteoporosis (http://www.nof.org/professionals/clinical-guidelines) Narrative 10/06/2024 5:18 PM DIRECTOR CALL EXAM DESCRIPTION: [facility] BONE DENSITOMETRY AXIAL SKELETON REASON FOR STUDY: 68 y/o year old F with given history of: Post-menopausal Track Repair Person/Model: [employer] (S/N [id number]) CLINICAL INFORMATION: Current height: 72 inches Maximum height: 72 inches Weight: 145 pounds Risk factors: Postmenopausal, adult fracture COMPARISON: None available FINDINGS: AP LUMBAR SPINE L1-L4: Total BMD is 1.362 g/cm2 T-score is 1.4 LEFT HIP: Total BMD is 1.026 g/cm2 T-score is 0.1 Femoral neck BMD is 0.942 g/cm2 T-score is -0.7 FRAX: FRAX not reported due to T-scores of hip, femoral neck and/or spine being at or above -1.0 (Normal). THIS IS AN ELECTRONICALLY VERIFIED FINAL REPORT 10/06/2024 5:16 PM - Electronically signed by Benjamin Ogden M.D. MF: NICK Report ID: [id number] Reading Location: [place] [address] Procedure Note Benjamin Ogden MD - 10/06/2024 EXAM DESCRIPTION: [facility] BONE DENSITOMETRY AXIAL SKELETON REASON FOR STUDY: 68 y/o year old F with given history of: Post-menopausal Track Repair Person/Model: [employer] (S/N [id number]) CLINICAL INFORMATION: Current height: 72 inches Maximum height: 72 inches Weight: 145 pounds Risk factors: Postmenopausal, adult fracture COMPARISON: None available FINDINGS: AP LUMBAR SPINE L1-L4: Total BMD is 1.362 g/cm2 T-score is 1.4 LEFT HIP: Total BMD is 1.026 g/cm2 T-score is 0.1 Femoral neck BMD is 0.942 g/cm2 T-score is -0.7 FRAX: FRAX not reported due to T-scores of hip, femoral neck and/or spine being at or above -1.0 (Normal). THIS IS AN ELECTRONICALLY VERIFIED FINAL REPORT 10/06/2024 5:16 PM - Electronically signed by Benjamin ROMERO: NICK Report ID: [id number] Reading Location: [place] [address] IMPRESSION: Normal bone mass. REFERENCE: Bone mineral density: T-Score: Normal (T-score above or = -1.0) Low bone mass (T-score between -1.0 and -2.5) replaces the previously used term osteopenia Osteoporosis (T-score = or below -2.5) Z-Score: Within the expected range for age (Z-score above -2.0) Below the expected range for age (Z-score is -2.0 or below) Please see below follow up recommendations. Medical evaluation for secondary causes of low bone mineral density may be appropriate. FRAX is a World Health Organization validated fracture risk assessment tool that calculates a person's 10 year probability of a major osteoporosis related fracture and hip fracture. According to the National Osteoporosis Foundation guidelines, postmenopausal women and men age 50 or older with low bone mass and a 10 year probability of a major osteoporosis related fracture = or greater than 20% or a 10 year probability of a hip fracture = or greater than 3% should be considered for pharmacological treatment for the prevention of osteoporosis. For further information, including treatment recommendations, please refer to the 2019 ISCD Official Positions (http://www.iscd.org) and the NOF's Clinician's Guide to Prevention and Treatment of Osteoporosis (http://www.nof.org/professionals/clinical-guidelines) Sasha Haile [facility] IMG DEXA ORDERABL ES Final Result from Last 3 Months or Most Recently Relevant to Health Maintenance Insurance [facility]IC[facility] C [facility] Advance Directives * Full Code (Latest Code Status on File) Date Activated Date Inactivated Comments 01/15/2023 11:52 PM 01/17/2023 4:10 PM CPR-Full Rosemary tment: FULL ARREST: Attempt Resuscitation/CPR wit intubation and mechanical ventilation. PRE-ARREST: Use entire range of life support measures to stabilize the patient. Care Teams Life Sciences Instructor Relationship Specialty Start Date End Date Sasha Haile, [facility] [address] [place] [address] PCP - General Physician Director Of Partner Marketing 01/20/24 Des York MD [address] [phone] Consulting Physician Endocrinology 08/28/23 Kalee Escoto APRN, VOCATIONAL SCHOOL TEACHER [address] [place] [address] Nurse Practitioner Advanced Practice Nurse 09/08/24 Reyes Moralez MD [address] [phone] Consulting Physician General Surgery 01/20/25
--- OUTSIDE RECORDS SUMMARY | 2025-05-20 13:12 | XMS_ITS | Data Portability ---
Author Organization [facility] Abel Styles Address [address] [place] [address] Care Team Providers Care Clinical Abstractor Name Role Phone LUCAS, MANJULA Primary Care Provider Unavailabl e Assessment No assessment recorded. Plan of Treatment Reminders Order Date Submit Date Provider Last Modified By Organization Details Last Modified Time Details Appointments None recorded. Lab amylase + lipase, serum 2022 023 [facility], [address] [facility], [facility] [address], [place], [address], 3 10:09:58 TSH, ultra-sen sitive, serum 2022 023 [facility], [address] [facility], [facility], [place], [address], 3 01:45:29 amylase + lipase, serum 2022 023 [facility], [address] [facility], [facility], [place], [address], 3 10:36:56 BNP (B-type natriuret ic peptide), serum or plasma 2022 023 [facility], [address] [facility], [facility], [place], [address], 3 10:36:55 CMP, serum or plasma 2022 023 [facility], [address] [facility], [facility], [place], [address], 3 20:08:39 Referral dermatolo gist referral 2023 024 RODNEY Sanford MD (Dermatology), [address] [facility] , [facility] [address], [place], [address], 4 12:56:33 endocrino logy referral 2022 023 [place] [place], [address] [facility] [address], [place], [address], 3 16:09:57 cardiolog ist referral 2022 023 [facility] Product Support Specialist, 2 [facility] , [facility] [address], [place], [address], 3 14:18:04 Procedures None recorded. Surgeries None recorded. Imaging CT, abdomen, w/wo contrast 2022 023 [place] Issa [facility] (Radiology), [address] [facility] , [place], [address], 3 11:04:47 MRI, abdomen, w/wo contrast - Needs open MRI 2022 023 [facility], [address], [place], [address], 3 13:19:08 Medication Orders Eliquis 5 mg tablet 2022 023 [facility], [address] [place], [address], 4 09:36:33 Patient TargetsNo targets recorded. Patient Instructions Encounter Date Encounter Id Patient Instructions Last Modified By Organization Details Last Modified Time 01/25/2023 [id number] heart failure: c are instructions Not available 01/25/2023 10:44:19 learning about h eart failure Not available 01/25/2023 10:44:19 Follow a low salt diet, drink at least 8-10 8oz glasses of water a day, exercise most days of the week. Take all medications as prescribed. Keep appointments with PCP and all specialists. Not available 01/28/2023 22:05:38 keep f/u as planned Not availa ble 01/28/2023 22:05:44 02/28/2023 [id number] low sodium diet (2,000 milligram): care instructions Not available 02/28/2023 12:40:30 gastroesophageal reflux disease (GERD): care instructions Not available 02/28/2023 12:40:30 atrial fibrillat ion: care instructions Not available 02/28/2023 12:40:30 -Drink plenty of fluids, enough so that your urine is light yellow or clear like water. If you have kidney, heart, or liver disease and have to limit fluids, talk with your doctor before you increase the amount of fluids you drink. -Include high-fiber foods in your diet each day. These include fruits, vegetables, beans, and whole grains. -Get at least 30 minutes of exercise on most days of the week. Walking is a good choice. You also may want to do other activities, such as running, swimming, cycling, or playing tennis or team sports. -Take a fiber supplement, such as Citrucel or Metamucil, every day. Read and follow all instructions on the label. -Schedule time each day for a bowel movement. A daily routine may help. Take your time having your bowel movement. -Support your feet with a small step stool when you sit on the toilet. This helps flex your hips and places your pelvis in a squatting position. -Your doctor may recommend an ghdx-[id number] laxative to relieve your constipation. Examples are Milk of Magnesia and MiraLax. Read and follow all instructions on the label. Do not use laxatives on a long-term basis. -Call your doctor now or seek immediate medical care if: You have new or worse belly pain. You have new or worse nausea or vomiting. You have blood in your stools. -Watch closely for changes in your health, and be sure to contact your doctor if: Your constipation is getting worse. You do not get better as expected. Not available 02/28/2023 23:28:32 follow up in 2 months Not available 02/28/2023 23:28:43 04/05/2023 [id number] spinal deformity : scoliosis & kyphosis education Not available 04/05/2023 10:43:46 low sodium diet (2,000 milligram): care instructions Not available 04/05/2023 10:42:06 gastroesophageal reflux disease (GERD): care instructions Not available 04/05/2023 10:42:06 atrial fibrillat ion: care instructions Not available 04/05/2023 10:42:06 hypothyroidism: care instructions Not available 04/05/2023 10:42:06 -Call your doctor now or seek immediate medical care if: You have new or worse belly pain. You have new or worse nausea or vomiting. You have blood in your stools. -Watch closely for changes in your health, and be sure to contact your doctor if: Your constipation is getting worse. You do not get better as expected. Not available 04/05/2023 10:31:42 f/u 3 months Not available 10:31:55 07/09/2023 [id number] spinal deformity : scoliosis & kyphosis education Not available 07/09/2023 10:09:43 low sodium diet (2,000 milligram): care instructions Not available 07/09/2023 10:09:44 gastroesophageal reflux disease (GERD): care instructions Not available 07/09/2023 10:09:44 atrial fibrillat ion: care instructions Not available 07/09/2023 10:09:44 hypothyroidism: care instructions Not available 07/09/2023 10:09:44 -Call your doctor now or seek immediate medical care if: You have new or worse belly pain. You have new or worse nausea or vomiting. You have blood in your stools. -Watch closely for changes in your health, and be sure to contact your doctor if: Your constipation is getting worse. You do not get better as expected. Not available 07/09/2023 10:05:11 dwp labs needed, plan pending results Not available 07/09/2023 10:05:19 01/07/2024 [id number] spinal deformity : scoliosis & kyphosis education Not available 01/07/2024 10:00:33 low sodium diet (2,000 milligram): care instructions Not available 01/07/2024 10:00:34 gastroesophageal reflux disease (GERD): care instructions Not available 01/07/2024 10:00:33 atrial fibrillat ion: care instructions Not available 01/07/2024 10:00:33 hypothyroidism: care instructions Not available 01/07/2024 10:00:34 bradycardia: car e instructions Not available 01/07/2024 10:00:34 -Call your doctor now or seek immediate medical care if: You have new or worse belly pain. You have new or worse nausea or vomiting. You have blood in your stools. -Watch closely for changes in your health, and be sure to contact your doctor if: Your constipation is getting worse. You do not get better as expected. Not available 01/07/2024 10:00:55 f/u 6 months DWP barriers to care: none Not available 01/07/2024 10:00:58 Reason for Referral Retail Customer Service Representative Referral for Hi story of atrial fibrillation Referring Physician: [facility], Encounter Date: 01/25/2023 Endocrinology Referral for H ypothyroidism Referring Physician: [facility], Encounter Date: 07/09/2023 Retail Operations Manager Referral for B candice Referring Physician: Manjula Lucas [facility] Medicine, Encounter Date: 01/07/2024 Results Created Date Observation Date Name Description Value Unit Range Abnormal Flag Note LastModifiedBy Organization Detail LastModifiedTime 02/07/20 23 02/06/2023 COMP. METAB OLIC PANEL (14) glucose 86 mg/dL 65-99 ANION GP 14.0 mmol/ L N OSMOL 273.0 mOsM/ L L REFER ENCE RANGE : 275.0 -301. 0 Not Available [facility] Him Department [address] [place], [address], 02/06/2023 20:08:39 02/07/20 23 02/06/2023 COMP. METAB OLIC PANEL (14) BUN 7 mg/dL 8-26 below low normal Not Available [facility] Department [address] [place], [address], 02/06/2023 20:08:39 02/07/20 23 02/06/2023 COMP. METAB OLIC PANEL (14) creatinine 0.74 mg/dL 0.50-1 .40 Not Available [facility] Department [address] [place], [address], 02/06/2023 20:08:39 02/07/20 23 02/06/2023 COMP. METAB OLIC PANEL (14) eGFR 90 mL/mi n/1.7 3 >=60 Not Available [facility] Department [address] [place] [address], [address], 02/06/2023 20:08:39 02/07/20 23 02/06/2023 COMP. METAB OLIC PANEL (14) BUN/creatini ne ratio 10.0 Not Available [facility] Department [address] [place], [address], 02/06/2023 20:08:39 02/07/20 23 02/06/2023 COMP. METAB OLIC PANEL (14) sodium 138.0 mmol/ L 136.0- 144.0 Not Available [facility] Department [address] [place], [address], 02/06/2023 20:08:39 02/07/20 23 02/06/2023 COMP. METAB OLIC PANEL (14) potassium 4.9 mmol/ L 3.5-5. 3 Not Available [facility] [address] [place], [address], 02/06/2023 20:08:39 02/07/20 23 02/06/2023 COMP. METAB OLIC PANEL (14) chloride 100 mmol/ l 101-11 1 below low normal Not Available [facility] [address] [place], [address], 02/06/2023 20:08:39 02/07/20 23 02/06/2023 COMP. METAB OLIC PANEL (14) carbon dioxide, total 28.7 mmol/ L 21.0-3 2.0 Not Available [facility] [address] [place], [address], 02/06/2023 20:08:39 02/07/20 23 02/06/2023 COMP. METAB OLIC PANEL (14) calcium 10.3 mg/dL 8.2-10 .0 above high normal Not Available [facility] [address] [place], [address], 02/06/2023 20:08:39 02/07/20 23 02/06/2023 COMP. METAB OLIC PANEL (14) protein, total 7.4 g/dL 6.7-8. 2 Not Available [facility] [address] [place], [address], 02/06/2023 20:08:39 02/07/20 23 02/06/2023 COMP. METAB OLIC PANEL (14) albumin 4.4 g/dL 3.5-5. 5 Not Available [facility] [address] [place] [address], [address], 02/06/2023 20:08:39 02/07/20 23 02/06/2023 COMP. METAB OLIC PANEL (14) globulin, total 3.0 g/dL 1.5-4. 5 Not Available [facility] [address] [place], [address], 02/06/2023 20:08:39 02/07/20 23 02/06/2023 COMP. METAB OLIC PANEL (14) A/G ratio 1.5 Not Available [facility] Department [address] [place], [address], 02/06/2023 20:08:39 02/07/20 23 02/06/2023 COMP. METAB OLIC PANEL (14) bilirubin, total 0.3 mg/dL 0.0-1. 2 Not Available [facility] [address] [place] [address], [address], 02/06/2023 20:08:39 02/07/20 23 02/06/2023 COMP. METAB OLIC PANEL (14) alkaline phosphatase 60.2 IU/L 42.0-1 21.0 Not Available [facility] [address] [place] [address], [address], 02/06/2023 20:08:39 02/07/20 23 02/06/2023 COMP. METAB OLIC PANEL (14) AST (SGOT) 12.0 U/L 10.0-4 2.0 Not Available [facility] [address] [place] [address], [address], 02/06/2023 20:08:39 02/07/20 23 02/06/2023 COMP. METAB OLIC PANEL (14) ALT (SGPT) 10.1 U/L 10.0-6 0.0 Not Available [facility] Department [address] [place], [address], 02/06/2023 20:08:39 02/07/20 23 02/07/2023 B-TYP E NATRI URETI C PEPTI DE B-type natriuretic peptide 48.8 pg/mL 0.0-10 0.0 Sieme ns [facility] metho dolog y Not Available [facility] ([facility]) [address] [facility], [place], [address], 02/07/2023 10:36:55 02/07/20 23 02/07/2023 BETTY+L IPASE amylase 51 U/L 31-110 Not Available [facility] ([facility]) [address] [facility], [place], [address], 02/07/2023 10:36:56 02/07/20 23 02/07/2023 BETTY+L IPASE lipase 31 U/L 14-72 Not Available [facility] ([facility]) [address] [facility], [place], [address], 02/07/2023 10:36:56 05/21/20 23 05/22/2023 TSH RFX ON ABNOR MAL TO FREE T4 TSH 1.610 uIU/m L 0.450- 4.500 Not Available [facility] ([facility]) [address] [facility], [place], [address], 05/22/2023 09:14:50 01/26/20 , [facility] ardio gram No observ ation record ed. [email or web address] Not Available 01/25 10:47:53 03/18/20 23 03/12/2023 MRI, abdom en, w/wo contr ast No observ ation record ed. [address]-[facility] [address], [place], [address], 03/20/2023 15:36:28 08/14/2008/12/2023 CT, abdom en, w/wo contr ast No observ ation record ed. [address] [place], [address], 08/16/2023 15:50:17 08/21/2008/21/2023 imagi ng/di agnos tic resul t No observ ation record ed. [address] [place], [address], 08/22/2023 08:02:47 Result Notes None recorded. Problems Name Problem SNOMED Code Status Onset Date Resolution Date Notes Provider Name and Address Organization Details Recorded Time Sleep disorder 74923436 Active 2017 Manjula Lucas APN, OUTSIDE C[employer]TER [employer]-C Attn: Luis Alberto g,[address] [facility], [place], [address], [facility] 8 13:31:36 Anxiety 97945273 Active 2017 Manjula Lucas APN, FNP-C Attn: Luis Alberto garcia,[address] [facility], [place], [address], [facility] 8 21:07:35 Hypertensiv e disorder 25374600 Active Manjula Lucas APN, FNP-C Attn: Luis Alberto garcia,[address] [facility], [place], [address], [facility] 6 16:29:49 Hypothyroid ism 54781533 Active Manjula Lucas APN, FNP-C Attn: Luis Alberto garcia,[address] [facility], [place], [address], [facility] 6 11:26:47 Insomnia 642599364 Active Karlee Jorgensener [facility] 6 15:53:13 Dyspnea 407626390 Active 2021 Manjula Lucas APN, FNP-C Attn: Luis Alberto garcia,[address] [facility], [place], [address], [facility] 2 15:10:18 Hyperlipide fco 86460608 Active Karlee Sheffield [facility], [facility] 6 15:53:13 Bronchitis 43929448 Completed 04/15/2019 Manjula Lucas APN, FNP-C Attn: Luis Alberto garcia,[address] [facility], [place], [address], [facility] 9 16:12:12 Laryngitis 41254122 Completed 04/15/2019 Manjula Lucas APN, FNP-C Attn: Luis Alberto garcia,[address] [facility], [place], [address], [facility] 9 16:12:17 Overweight 196023098 Active 2022 Manjula Lucas APN, FNP-C Attn: Luis Alberto garcia,[address] [facility], [place], [address], [place] [facility] 3 11:51:05 Hiatal hernia with gastroesoph ageal reflux 341757749 Active 2022 Manjula Lucas APN [employer] Attn: Alineshon garcia,[address], [place], [address], [place] [facility] 3 12:35:02 Atrial fibrillatio n 00510491 Active 2022 Manjula Lucas APN, [employer] Attn: Alinein g,[address] [facility], [place], [address], [place] [facility] 3 12:35:04 Cyst of pancreas 68882774 Active 2022 Manjula Lucas APN, [employer] Attn: Alineshon g,[address] [place] [address], [place], [address], [place] [facility] 3 12:35:05 Scoliosis of lumbar spine 184756901 Active 2022 Manjula Lucas APN, [employer] Attn: Alineshon garcia,[address] [place] [address], [place], [address], [place] [facility] 3 10:36:13 Sinusitis 77617020 Completed 04/15/2019 Manjula Lucas APN [employer] Attn: Alineshon g,[address] [facility], [place], [address], [place] [facility] 9 16:12:09 Mild anxiety 16984846 Active Manjula Lucas APN [employer] Attn: Alinein g,[address] [facility], [place], [address], [place] [facility] 6 16:29:49 Acute maxillary sinusitis 21725284 Completed 201604/15/2019 Manjula Lucas APN [employer] Attn: Luis Alberto g,[address] [facility], [place], [address], [place] [facility] 9 16:12:20 Complaining of hair loss Active 2016 Manjula Lucas APN, FNP-C Attn: Luis Alberto garcia,[address] [facility], [place], [address], [facility] 7 12:24:24 Notes:Some problems listed i n Documents: #[id number], #[id number], #[id number] could not be added to this patient's chart. Please review these documents and add these problems to the patient's chart manually as needed. Problem Notes None recorded. Procedures Surgical History Date Name Laterality Status Provider Name and Address Organization Details Recorded Time 11/11/18 85 Total hysterectomy completed Manjula Lucas APN, FNP-C Attn: Accounting,[address] [place], [address], [facility] 05/27/2017 15:00:56 11/11/18 85 Hysterectomy completed Blanka Flynn MA [facility] 12/17/2014 15:51:20 11/11/18 84 Dilation and Curettage completed Blanka Flynn MA [facility] 12/17/2014 15:51:20 Imaging Results None recorded. Procedure Notes None recorded. Medical Equipment None Reported. Allergies Allergen ID Allergen Name Allergen Category Reaction Reaction Severity Criticality Documentation Date Start Date Code Code System Note Provider Name and Address Organization Details Recorded Time 860232 adhesive environme nt,medica tion Not available Not available Not available 02/28/2023 [id number] UNK Manjula Lucas APN, FNP-C Attn: Luis Alberto garcia,[address] [facility], [place], [address], [facility] 3 12:28:48 [address]3749 lisinopri l medicatio n Not available Not available Not available 12/17/2014 52753 RxNorm DARREN Gonzalez [facility] 5 15:51:20 [address] Augmentin medicatio n diarrhea Not available Not available 07/12/2016 93301 2 RxNorm Karlee augustin [facility] 6 16:01:04 Medications Name Sig Start Date Stop Date Status Note LastModified by Organization Details LastModified Time amoxicill in 500 mg capsule Take 1 capsule every 8 hours by oral route for 10 days. 09/01 completed Not Available Not Available Not Available buspirone 5 mg tablet TAKE 1 TABLET BY MOUTH IN THE MORNING AND AT BEDTIME active Not Available Not Available No t Available promethaz ine-DM 6.25 mg-15 mg/5 mL oral syrup TAKE 5 ML BY MOUTH EVERY 4 HOURS 01/08 completed Not Available Not Available Not Available levothyro xine 137 mcg tablet TAKE 1 TABLET BY MOUTH ONCE DAILY 04/05 completed Not Available Not Available Not Available atorvasta tin 10 mg tablet Take 1 tablet every day by oral route. 10/27 completed 10/27/20 19-pt sates I'm not taking Not Available Not Available Not Available azithromy rosibel 250 mg tablet TAKE 2 TABLETS BY MOUTH ON DAY 1, AND THEN TAKE 1 TABLET BY MOUTH ONCE A DAY ON DAY 2 THROUGH DAY 5 04/26 completed Not Available Not Available Not Available prednison e 20 mg tablet TAKE 2 TABLETS BY MOUTH ONCE DAILY FOR 5 DAYS 12/06 completed Not Available Not Available Not Available acetamino phen 300 mg-codein e 30 mg tablet TAKE 1 TABLET BY MOUTH EVERY 6 HOURS NEEDED 02/28 completed Not Available Not Available Not Available sulfameth oxazole 800 mg-trimet hoprim 160 mg tablet TAKE 1 TABLET BY MOUTH EVERY 12 HOURS FOR 7 DAYS 01/25 completed Not Available Not Available Not Available bupropion HCl SR 100 mg tablet,12 hr sustained -release TAKE 1 TABLET BY MOUTH TWICE DAILY 04/15 completed pt states was making her gain weight, tremors in her hands and headache s Not Available Not Available Not Available Promethaz ine VC-Codein e 6.25 mg-5 mg-10 mg/5 mL oral syrup Take 5 mL every 4 hours by oral route as needed. 07/12 completed Not Available Not Available Not Available meloxicam 7.5 mg tablet TAKE 1 TABLET BY MOUTH ONCE DAILY active Not Available Not Available No t Available levothyro xine 100 mcg tablet TAKE 1 TABLET BY MOUTH ONCE DAILY active Not Available Not Available No t Available doxycycli ne monohydra te 100 mg capsule TAKE 1 CAPSULE BY MOUTH TWICE DAILY FOR 7 DAYS 01/08 completed Not Available Not Available Not Available levothyro xine 125 mcg tablet TAKE 1 TABLET BY MOUTH ONCE DAILY active Not Available Not Available No t Available neomycin- polymyxin -dexameth 3.5 mg/mL-10, 000 unit/mL-0 .1% eye drops INSTILL 1 DROP INTO EACH EYE 4 TIMES DAILY FOR 5 DAYS, THEN 1 DROP INTO EACH EYE TWICE DAILY FOR 3 DAYS active Not Available Not Available No t Available levothyro xine 150 mcg tablet Take 1 tablet by mouth once daily active Not Available Not Available No t Available metoprolo l tartrate 50 mg tablet Take 1 tablet by mouth once daily active Not Available Not Available No t Available omeprazol e 20 mg capsule,d elayed release Take 1 capsule by mouth once daily active Not Available Not Available No t Available cephalexi n 500 mg tablet TAKE 1 TABLET BY MOUTH EVERY 12 HOURS FOR 7 DAYS 01/25 completed Not Available Not Available Not Available hydroxyzi ne HCl 25 mg tablet Take 1 tablet twice a day by oral route for 30 days. 01/21 completed Not Available Not Available Not Available Vistaril 25 mg capsule Take 1 capsule twice a day by oral route for 30 days. 01/21 completed Not Available Not Available Not Available zolpidem 10 mg tablet 1 tab po q hs 07/12 completed Needs 340B Not Available Not Available Not Available methylpre dnisolone 4 mg tablets in a dose pack TAKE BY MOUTH DIRECTED ON INSIDE OF PACKAGE 01/11 completed Not Available Not Available Not Available albuterol sulfate HFA 90 mcg/actua tion aerosol inhaler INHALE 2 PUFFS BY MOUTH EVERY 4 HOURS NEEDED 02/28 completed Not Available Not Available Not Available ondansetr on 4 mg disintegr ating tablet DISSOLVE 2 TABLETS IN MOUTH TWICE DAILY NEEDED 07/09 completed Not Available Not Available Not Available levothyro xine 112 mcg tablet 1 tab po daily 10/12 completed Not Available Not Available Not Available amoxicill in 875 mg-potass ium clavulana te 125 mg tablet TAKE 1 TABLET BY MOUTH TWICE DAILY FOR 7 DAYS active Not Available Not Available No t Available Zetia 10 mg tablet Take 1 tablet every day by oral route. 01/08 completed Not Available Not Available Not Available bupropion HCl XL 150 mg 24 hr tablet, extended release TAKE 1 TABLET BY MOUTH ONCE DAILY IN THE MORNING active Not Available Not Available No t Available Eliquis 5 mg tablet TAKE 1 TABLET BY MOUTH TWICE DAILY 01/07 completed pt states no longer taking Not Available Not Available Not Available Vitals Date Recorded Body height Body mass index (BMI) Body weight Respiratory rate Body temperature Heart rate Oxygen saturation Oxygen saturation in Arterial blood by Pulse oximetry Systolic And Diastolic Provider Name and Address Organization Details Last Updated DateTime 4 180.34 cm 21.1 kg/m2 87636.1 5 g 16 /min 98.6 [degF] 50 /min 99 % 99 % 130/68 mm[Hg] Caron Ayala MA [facility] 4 09:35:08 Date Recorded Body height Body mass index (BMI) Body weight Oxygen saturation Oxygen saturation in Arterial blood by Pulse oximetry Heart rate Respiratory rate Body temperature Systolic And Diastolic Provider Name and Address Organization Details Last Updated DateTime 3 180.34 cm 24.8 kg/m2 39577.4 4 g 96 % 96 % 68 /min 16 /min 98 [degF] 128/92 mm[Hg] Ceci Gates [facility] 3 10:20:29 Date Recorded Body height Body mass index (BMI) Body weight Oxygen saturation Oxygen saturation in Arterial blood by Pulse oximetry Heart rate Respiratory rate Body temperature Systolic And Diastolic Provider Name and Address Organization Details Last Updated DateTime 3 180.34 cm 23.6 kg/m2 97721.1 1 g 98 % 98 % 70 /min 16 /min 98 [degF] 110/74 mm[Hg] Ceci Gates [facility] 3 12:11:04 Date Recorded Body height Body mass index (BMI) Body weight Oxygen saturation Oxygen saturation in Arterial blood by Pulse oximetry Heart rate Respiratory rate Body temperature Systolic And Diastolic Provider Name and Address Organization Details Last Updated DateTime 3 180.34 cm 22.6 kg/m2 69195.9 6 g 99 % 99 % 60 /min 16 /min 97.3 [degF] 122/88 mm[Hg] Ceci Gates [facility] 3 10:10:08 Date Recorded Body height Body mass index (BMI) Body weight Oxygen saturation Oxygen saturation in Arterial blood by Pulse oximetry Heart rate Respiratory rate Body temperature Systolic And Diastolic Provider Name and Address Organization Details Last Updated DateTime 3 180.34 cm 22 kg/m2 94291.5 9 g 99 % 99 % 54 /min 16 /min 97.7 [degF] 124/86 mm[Hg] Ceci Gates [facility] 3 09:41:13 Social History Question Answer Notes LastModified by Organizat ion Details LastModified Time Tobacco Smoking Status Never Smoker Karleesuzanne augustin [facility] 05/27/2017 14:31:41 Do You Have An Advance Directive? No Information not available 04/15/2019 Are You Blind Or Do You Have Difficulty Seeing? No Information not available 01/11/2021 What Is Your Level Of Caffeine Consumption? Occasional Tea Information not available 01/07/2024 How Much Tobacco Do You Chew? None Information not available 05/27/2017 In The 14 Days Before Symptom Onset, Have You Had Close Contact With A Laboratory-confir med COVID-19 While That Case Was Ill? No Information not available 01/11/2021 In The 14 Days Before Symptom Onset, Have You Had Close Contact With A Person Who Is Under Investigation For COVID-19 While That Person Was Ill? No Information not available 01/11/2021 Have You Been To An Area Known To Be High Risk For COVID-19? No Information not available 09/01/2020 Are You Deaf Or Do You Have Serious Difficulty Hearing? No Information not available 01/11/2021 What Type Of Diet Are You Following? REGULAR Light Eating [email or web address] Information not available 02/28/2023 Which Illicit Or Recreational Drugs Have You Used? None Information not available 05/27/2017 Education 12 Information no t available 09/01/2020 Are There Any Guns Present In Your Home? No Information not available 04/15/2019 Hard Of Hearing Or Deaf In One Or Both Ears? No Information not available 09/01/2020 Legally Blind In One Or Both Eyes? No Information no t available 09/01/2020 Marital Status Informatio n not available 04/15/2019 What Was The Date Of Your Most Recent Tobacco Screening? 01/07/2024 Information not available 01/07/2024 Performs Monthly Self-breast Exam? Yes Information no t available 05/27/2017 What Is Your Relationship Status? Information not available 01/11/2021 Do You Use Your Seat Belt Or Car Seat Routinely? Yes Information not available 01/11/2021 Seat Belts Used Routinely Yes Information not available 04/15/2019 Are You Sexually Active? No [email or web address] Information not available 12/06/2021 Smoke Alarm In Home Yes Information not available 04/15/2019 Do You Have Smoke And Carbon Monoxide Detectors In Your Home? Yes Information not available 01/11/2021 Are You Passively Exposed To Smoke? No Information no t available 01/11/2021 How Much Tobacco Do You Smoke? No Information not available 12/04/2017 General Stress Level Medium [email or web address] Information not available 11/07/2020 Do You Use Sunscreen Routinely? Yes Information not available 04/15/2019 Has Tobacco Cessation Counseling Been Provided? No Information not available 01/08/2023 How Many Years Have You Smoked Tobacco? 0 Information not available 12/04/2017 Sex: Female Functional Status Question Answer Note LastModified by Organizat ion Details LastModified Time Do you use any illicit or recreational drugs? No Information not available 01/11/2021 Do you or have you ever used any other forms of tobacco or nicotine? No Information not available 01/11/2021 What is your level of alcohol consumption? None Information not available 01/07/2024 Do you or have you ever used smokeless tobacco? Never used smokeless tobacco Information not available 10/27/2019 Are you currently employed? Yes [email or web address] Information not available 01/08/2023 Are you able to care for yourself? Yes Information not available 01/11/2021 What is your occupation? [employer] [email or web address] Information not available 01/08/2023 Do you or have you ever used e-cigarettes or vape? Never used electronic cigarettes Information not available 10/27/2019 What is your exercise level? Occasional [email or web address] Information not available 12/17/2014 Mental Status Question Answer Note LastModified by Organization D etails LastModified Time Do you feel stressed (tense, restless, nervous, or anxious, or unable to sleep at night)? [id number] [email or web address] Information not available 07/09/2023 Family History Nothing Reported. Medical History Condition Response Coronary Artery Disease N Other N Atrial Fibrillation N High Blood Pressure Y Kidney or Bladder Problems N Thyroid Problems Y GI Problems N Depression N COPD N Blood Clots N Hypothyroidism Y Skin Problems N Anemia N Heart Attack ([place]) N Anxiety Disorder N Diabetes N Muscle, Joint, or Bone Problems N Seizures/Epilepsy N Acid Reflux (GERD) N Cancer N Stroke N Asthma N Allergies N High Cholesterol N Hepatitis N Liver Disease N Headaches N Heart Failure N Osteoporosis N Gynecological History Statement/Question Response LMP Unknown Obstetrics History GPAL:G 1 P 0 0 0 1 Type Value Living 1 Total 1 Immunizations Vaccine Type Date Status Note Provider Name and Address Organization Details Recorded Time Tdap 11/11/19 12 completed Not Available [facility] 02/14/2023 12:52:14 Influenza, split virus, quadrivalent, preservative 10/27/20 19 cancelled patient objection Not Available [facility] 11/28/2019 02:43:03 Influenza, split virus, quadrivalent, preservative 09/01/20 20 cancelled patient objection Manjula Lucas APN, [employer] Attn: Accounting,[address] [facility], [place], [address], [facility] 09/01/2020 15:29:28 Past Encounters Encounter ID Performer Location Encounter Start Date Encounter Closed Date Diagnosis/Indication Diagnosis SNOMED-CT Code Diagnosis ICD10 Code Diagnosis Note [id number] Tomas Christy MD [facility] (Adult Med) [address] [place] [address] 12/17/2014 15:24:58 12/17/2014 16:20:41 Hypertensive disorder [id number] Continue diet, meds, and exercise. Limit salt < 2 gm. limit caffeine. Hypothyroidism 09323949 Patient needing labs jasvir. Not fasting today, so will come back next week for labs. Continue levothyrox ine 150 mcg daily for now. Insomnia 283458384 Oscar nue sleep hygiene, and ambien 10 mg nightly prn sleep #8 monthly. [id number] [facility] [address] [place] [address] 01/11/2015 15:32:23 01/11/2015 16:06:42 Bronchitis 56184826 NSAIDs prn fever, sweats, body aches. Continue fluids. Hand hygiene. Laryngitis 64592778 voca l rest. [id number] [facility] [address] [place] [address] 07/12/2015 15:07:11 07/12/2015 16:54:34 Hypothyroidism 86569774 Labs due. Levothyrox ine 125 mcg daily. Patient to be back on meds for 3 weeks before labs tested. Hyperlipidemia 78305548 Diet and lifestyle to aid control. No medication s at this time. Labs due. Insomnia 612311319 Will continue ambien. Patient to try 5 mg nightly prn. Hypertensive disorder 28220225 Continue diet, meds, and exercise. Limit salt < 2 gm. limit caffeine. [id number] [facility] [address] [place] [address] 10/20/2015 14:47:47 10/21/2015 17:35:27 Sinusitis 46250561 J32.9 Nasal saline prn. Zpak. Laryngitis 21305656 J04. 0 vocal rest. Warm fluids. [id number] Manjula Lucas APN, [facility] [address] [place] [address] 07/12/2016 15:31:33 07/13/2016 15:58:03 Hypothyroidism 44068542 E03.9 Hypertensive disorder 38 326868 I10 Mild anxiety 69098093 F4 1.8 Adult heal th examination 048950087 Z00.00 [id number] Manjula Lucas APN, FNP-C [facility] (Adult Med) [address] [place] [address] 10/22/2016 14:13:59 10/22/2016 16:58:44 Hypertensive disorder 24547702 I10 Continue with metoprolol tartrate 50 mg BID Hypothyroidism 82932958 E03.9 Start Synthroid Brand 137mcg. Hyperlipidemia 00053216 E78.5 [id number] Manjula Lucas APN, FNP-C [facility] (Adult Med) [address] [place] [address] 01/21/2017 14:05:15 01/22/2017 09:20:11 Hypothyroidism 66338624 E03.9 needs lab check before refill of Synthroid Brand 137 mcg. Pt would prefer three month if possible Hypertensive disorder 38 689925 I10 Continue with metoprolol tartrate 50 mg BID Hyperlipidemia 76730964 E78.5 low fat diet advised Body mass index 25-29 - overweight 400224648 Z68.29 cont to work on weight loss, 20 pounds since last visit [id number] Manjula Lucas APN, FNP-C [facility] (Adult Med) [address] [place] [address] 05/27/2017 14:09:22 05/27/2017 16:20:59 Insomnia 210008243 G47.00 melatonin 10 mg; lavender essential oils are fine; pt does not want medication Hypertensive disorder 38 961086 I10 Continue with metoprolol tartrate 50 mg BID Hypothyroidism 91059521 E03.9 needs lab check before refill of Synthroid Brand 137 mcg. Pt would prefer three month if possible Hyperlipidemia 61789596 E78.5 low fat diet advised Acute maxi llary sinusitis 89990646 J01.00 may also take otc cough and cold as needed [id number] Manjula Lucas APN, FNP-C [facility] (Adult Med) [address] [place] [address] 07/03/2017 11:31:02 07/08/2017 15:36:53 Hypothyroidism 86437517 E03.9 needs lab check before refill of Synthroid, pt has been cutting dose i half, lab due week of Aug 05 Complainin g of hair loss 800121703 R23.8 may continue supplement for hair and nail growth [id number] MD [facility] (Adult Med) [address] [place] [address] 12/04/2017 11:54:03 12/04/2017 17:43:18 Hypertensive disorder 40650045 I10 Continue with metoprolol tartrate 50 mg BID Hypothyroidism 88982434 E03.9 needs lab check before refill of Synthroid, TSH was 43.050-now down to 21.88, increasing dose to 150 mcg Hyperlipidemia 35188276 E78.5 low fat diet advised Screening for malignant neoplasm of colon 983654875 Z12.11 Sleep disorder 43905394 G47.9 cont with melatonin [id number] MD [facility]y Lopez (Adult Med) [address] [place] [address] 09/03/2018 11:52:43 09/04/2018 12:56:20 Hypertensive disorder 27246538 I10 Continue with metoprolol tartrate 50 mg BID Hypothyroidism 84348941 E03.9 needs lab check before refill of Synthroid, TSH was 43.050-now down to 21.88-need s checked Hyperlipidemia 58248782 E78.5 low fat diet advised Sleep disorder 07817509 G47.9 cont with melatonin up to 10 mg, has been taking 20 mg, pt not sleeping, goes for 3-4 days at a time. Anxiety 96009035 F41.9 Pt with increased anxiety, was on wellbutrin before and would like to restart Insomnia 107468440 G47.0 0 Cont with melatonin 10 mg, magnesium OTC also fine to take [id number] MD [facility] (Adult Med) [address] [place] [address] 10/15/2018 14:18:10 10/16/2018 10:45:54 Hypertensive disorder 25735725 I10 BP WNL, Continue with metoprolol tartrate 50 mg BID Hypothyroidism 30040688 E03.9 stable, cont synthroid 150 mcg Anxiety 21775451 F41.9 Pt with increased anxiety, was on wellbutrin , ok wth 150 mg, would like to try different dosing but not double, will switch to bid dosing of 100 mg, pt to RTO if any issues arise [id number] MD [facility]y Lopez (Adult Med) [address] [place] [address] 04/15/2019 15:27:11 04/16/2019 12:09:19 Hypertensive disorder 52605676 I10 BP WNL, Continue with metoprolol tartrate 50 mg BID Hypothyroidism 80535285 E03.9 check lab; currently on synthroid 150 mcg Anxiety 04590129 F41.9 Pt with increased anxiety, was on wellbutrin , ok wth 150 mg, would like to try different dosing but not double, will switch to bid dosing of 100 mg, pt to RTO if any issues arise Screening for malignant neoplasm of colon 061969190 Z12.11 Patient refused. Hyperlipidemia 16661919 E78.5 low fat diet advised, check lab Overweight 386673145 E66 .3 dwp working out at gym, states that her insurance will cover, will provide referral documentat ion to pt Bunion 138796942 M21.61 1 M21.612 dwp bunions on ishmael feet, left worse than right, reports painful and hard time wearing shoes, pt willing to see podiatry [id number] MD [facility] (Adult Med) [address] [place] [address] 10/27/2019 16:11:46 10/28/2019 09:13:29 Hypertensive disorder 73266518 I10 BP WNL, Continue with metoprolol tartrate 50 mg BID Hyperlipidemia 15196126 E78.5 low fat diet advised, check labpt refusing statin Hypothyroidism 12349090 E03.9 lab due to be checked; currently on synthroid 150 mcg Influenza vaccination declined 134761386 Z28.21 refused Acute sinusitis 61282808 J01.90 sinus pressure with purulent drainage, start amox 500 mg TID x 10 days [id number] MD Coby Lopez (Adult Med) [address] [place] [address] 09/01/2020 08:31:44 09/02/2020 11:30:51 Hypothyroidism 77150185 E03.9 lab due to be checked; currently on synthroid 150 mcg Hyperlipidemia 32587905 E78.5 low fat diet advised, check labpt refusing statin Hypertensive disorder 38 209199 I10 BP WNL, Continue with metoprolol tartrate 50 mg BID Screening for malignant neoplasm of colon 023556220 Z12.11 Patient refused. Influenza vaccination declined 399985611 Z28.21 refused [id number] MD Hazel JacobosoCarolee ank[address]or [address] [place] [address] 11/01/2020 09:17:20 11/02/2020 11:16:11 Viral screening 058914466 Z11.59 D/w pt the current pandemic of COVID-19 and call for social isolation in order to blunt the curve and minimize risk and spread. Encouraged patient and family to take restrictio ns seriously. They have verbalized understand ing of such. Viral syndrome 575688105 B34.9 [id number] MD Coby Lopez (Adult Med) [address] [place] [address] 11/07/2020 11:43:44 11/08/2020 06:53:43 Viral syndrome 245656994 B34.9 dwp covid results; treat symptomswi ll cover with z pack and medrol dose pack Exposure t o SARS-CoV-2 737868323 Z20.716 [id number] MD Coby Lopez (Adult Med) [address] [place] [address] 01/11/2021 08:14:58 01/12/2021 10:45:24 Screening for malignant neoplasm of colon 470231064 Z12.11 Patient refused. Dyspnea 290532563 R06.00 former smoker, dwp prn inhaler Acute bron chitis with bronchospasm 66065206 J20.9 harsh bronchial cough heard over phone, pt hx of CAP, was also exposed to COVID in Oct, got better then it came back worse, dwp will rx abx and strong burst of steroid; may get xray if not improving [id number] MD Coby Lopez (Adult Med) [address] [place] [address] 12/06/2021 14:17:51 12/07/2021 07:16:43 Hypertensive disorder 22175720 I10 BP WNL, Continue with metoprolol tartrate 50 mg BID Hyperlipidemia 50498118 E78.5 low fat diet advised, check labpt refusing statin Hypothyroidism 68284818 E03.9 lab due to be checked; currently on synthroid 150 mcg Dyspnea 880994612 R06.00 former smoker, dwp prn inhalerhx of TB as a child? [id number] MD Coby Lopez (Adult Med) [address] [place] [address] 04/26/2022 10:59:58 05/03/2022 07:55:29 Cough with fever 233141115 R05.1 covid test in office today Hypertensive disorder 38 814397 I10 BP WNL, Continue with metoprolol tartrate 50 mg BID Acute bronchitis 2061485 2 J20.9 rhonchi present, will cover for pneumonia as well; [id number] MD Coby Lopez (Adult Med) [address] [place] [address] 01/08/2023 11:04:15 01/09/2023 13:44:11 Flank pain 021912530 R10.9 cont abx as prescribed - not improved with keflex, will change to bactrim Hiatal hernia 67036040 K 44.[address] at ER, pain over past week; will start ppi and send to GI Nausea 987181945 R11.0 zofran prn Overweight 317364533 E66 .3 improved since last visit [id number] MD Coby Lopez (Adult Med) [address] [place] [address] 01/25/2023 09:57:44 01/29/2023 14:29:51 Hospital inpatient stay within past 30 days 3310157185 106 Z76.89 records reviewed History of atrial fibrillation 695580723 Z86.79 dwp to cont blood thinner and f/u with cardiology Congestive heart failure 01810007 I50.9 acute in hospital, not sure if chronic or only acute Mass of pancreas 1854128 [address] showed 9mm lesion, will be seeing GI soon, was advised to have MRI Hypertensive disorder 38 256939 I10 Continue with metoprolol tartrate 50 mg BID- meds to be managed with cardio [id number] MD Coby Lopez (Adult Med) [address] [place] [address] 02/28/2023 11:57:07 03/05/2023 12:45:41 Hypertensive disorder 13798693 I10 Continue with metoprolol tartrate 50 mg BID- meds to be managed with cardio- had tried monitor but could not handle the full 21 days, only able to wear for about 6 days Atrial fibrillation 4943 6004 I48.91 meds to be managed with cardio- had tried monitor but could not handle the full 21 days, only able to wear for about 6 days, advised to follow up Cyst of pancreas 0451479 0 K86.2 will follow up with MRI, still has qing colored stool; Hiatal her cielo with gastroesophageal reflux 181162460 K44.[address] at ER, pain over past week; will start ppi and send to , had egd, hiatal hernia 4 cm; [id number] MD Coby Lopez (Adult Med) [address] [place] [address] 04/05/2023 09:39:08 04/09/2023 13:51:52 Hypothyroidism 90264178 E03.9 Labs in 6 weeks on new dose of levothyrox ine. About 60% reduction in dose should result in normalizat ion of TSH and free T4 Hypertensive disorder 38 673675 I10 Continue with metoprolol tartrate 50 mg BID- meds to be managed with cardio- had tried monitor but could not handle the full 21 days, only able to wear for about 6 days Hiatal her cielo with gastroesophageal reflux 592123509 K44.[address] at ER, pain over past week; will start ppi and send to GI, had egd, hiatal hernia 4 cm; Atrial fibrillation 4943 6004 I48.91 meds to be managed with cardio- had tried monitor but could not handle the full 21 days, only able to wear for about 6 days, advised to follow up with cardiology , Scoliosis of lumbar spine 547916004 M41.86 mild per MRIdwp chiro and exercise [id number] MD Coby Lopez (Adult Med) [address] [place] [address] 07/09/2023 09:19:31 07/10/2023 14:06:41 Hypothyroidism 06709340 E03.9 currently on levothyrox ine 100 mcgpt requesting referral to endocrine Hypertensive disorder 38 793403 I10 meds to be managed with cardio- had tried monitor but could not handle the full 21 days, only able to wear for about 6 days Hiatal her cielo with gastroesophageal reflux 365393236 K44.[address] at ER, will start ppi and send to GI, had egd, hiatal hernia 4 cm; Atrial fibrillation 4943 6004 I48.91 meds to be managed with cardio- had tried monitor but could not handle the full 21 days, only able to wear for about 6 days, advised to follow up with cardiology , Scoliosis of lumbar spine 737952624 M41.86 mild per MRIdwp chiro and exercise Cyst of pancreas 3350986 0 K86.2 will follow up with MRI, still has qing colored stool; Blister 607766311 R23.8 keloid like blister to anterior neck, pt not sure when or how she got it; [id number] MD Coby Lopez (Adult Med) [address] [place] [address] 01/07/2024 09:16:34 01/08/2024 14:30:30 Hypothyroidism 20615895 E03.9 currently on levothyrox ine 100 mcgnow sees endocrine Hypertensive disorder 38 330039 I10 meds to be managed with cardio- had tried monitor but could not handle the full 21 days, only able to wear for about 6 days Cyst of pancreas 6368576 0 K86.2 will follow up with MRI, still has qing colored stool; Hiatal her cielo with gastroesophageal reflux 000610501 K44.[address] at ER, will start ppi and send to GI, had egd, hiatal hernia 4 cm; Atrial fibrillation 4943 6004 I48.91 has not followed up, says apt was canceledad vised to follow up with cardiology , Scoliosis of lumbar spine 138637722 M41.86 mild per MRIdwp chiro and exercise Bradycardia 52952835 R00 .1 dwp decreasing metoprolol dose to 50 mg total per day; can take qd or can take 25 mg bid, will monitor changes Blister 174205478 R23.8 keloid like blister to anterior neck, pt not sure when or how she got it; Health Concerns Section Related Observation LastModified by Organization Detai ls LastModified Time None Recorded Concern Status LastModified by Organization Details LastModified Time None Recorded Advance Directives Directive N: Payers Insurance Date Sequence Insurance Name Policy Number Policy Darby Covered Member ID Darby Member ID Guarantor Name 07/04/2024 [place] [facility] Sully Martines [id number] Sully Martines 10/15/2018 SLIDING FEE SCHEDULE - DISCOUNT Sully Martines 12/06/2021 SLIDING FEE SCHEDULE - DISCOUNT Sully Martines 01/07/2024 1 [place] [facility] Sully Martines [id number] Sully Martines 10/31/2020 1 *SELF PAY* Vinay Martines 09/01/2020 SLIDING FEE SCHEDULE - DISCOUNT Sully Martines 01/07/2024 COVID19 [employer] Sully Martines [id number] Sully Martines 01/07/2024 SLIDING FEE SCHEDULE - DISCOUNT Sully Martines 11/01/2020 SLIDING FEE SCHEDULE - DISCOUNT Sully Martines 04/26/2022 SLIDING FEE SCHEDULE - DISCOUNT Sully Martines 10/22/2016 SLIDING FEE SCHEDULE - DISCOUNT Sully Martines 10/15/2018 1 *SELF PAY* Vinay Martines 01/08/2023 1 *SELF PAY* Vinay Martines 01/21/2017 SLIDING FEE SCHEDULE - DISCOUNT Sully Martines 12/19/2017 SLIDING FEE SCHEDULE - DISCOUNT Sully Bobbi 01/07/2024 1 [employer] (MEDICAID HMO) [facility] Sully Martines [id number] Sully Martines 07/04/2024 1 [facility] (MEDICARE REPLACEMENT /ADVANTAGE - HMO) [id number] Sully Martines [id number] Sully Martines 01/07/2024 1 [place] Sully Martines [id number] Sully Martines Notes Date Note Type Note Provider Name and Address Organization Details Recorded Time 01/25/2023 text/html went to ER [facility] f or Dizziness and pain, heart rate was 170 at ER. Pt is taking blood thinners was found to have a fib and covid, CT showed pancreatic lesion;has GI apt soon and needs follow up with cardio Manjula Lucas APN, FNP-C Attn: Accounting,[address] [facility], [place], [address], [place] [facility] 01/28/2023 22:06:15 02/28/2023 text/html pain radiated fr om shoulder blades to upper abdomen for 2 weeks. taking tylenol- does not help. Pain is constant, but worse with fatty foods as well.Has not followed up with GI yet Manjula Lucas APN, FNP-C Attn: Accounting,[address] [facility], [place], [address], [place] [facility] 02/28/2023 23:29:59 04/05/2023 text/html improving some o n lower dose of thyroid med,does not want to be on eliquis but agrees to take it until a fib is ruled out;goes back to cardio in Sep. stress test to be done;has not f/u with GI Manjula Lucas APN, FNP-C Attn: Accounting, [address] [facility], [place], [address], [place] [facility] 04/08/2023 23:18:36 07/09/2023 text/html improving some o n lower dose of thyroid med, wants referral to endocrine does not want to be on eliquis but agrees to take it until a fib is ruled out-goes back to cardio in Sep. stress test to be done; has not f/u with GI but still has pain sometimes still, but has mad diet changes and is somewhat better, pt believes pain is not from hiatal hernia but from her gallbladder Manjula Lucas APN, FNP-C Attn: Accounting,[address] [facility], [place], [address], [place] [facility] 07/09/2023 10:14:49 01/07/2024 text/html now seeing endocrine has not f/u with GI but still has pain- not often anymore as she has made diet changes Manjula Lucas APN, [employer] Attn: Accounting,[address] [facility], [place], [address], [facility], [facility] 01/07/2024 10:13:29 OBGyn Episode No OBEpisode recorded.
--- OUTSIDE RECORDS SUMMARY | 2025-05-20 13:12 | XMS_ITS | Encounter Summary ---
Author Organization [facility] Address [address] [facility] [place] [address] Phone Care Team Providers Care Sod Stripper Name Role Phone Des York MD Unavailable Sasha Haile PAC Primary Care Pro vider Kalee Escoto APRN, OSTRICH FARMER Unavailable Reyes Moralez MD Unavailable [phone] Reason for Visit * Reason Onset Date Comments Advice Only 05/20/2025 Encounter Details Date Type Department Care Team (Late st Contact Info) Description 05/20/2025 Telephone [facility] - Family [facility] [address] [place] [address] Sasha Haile, PAC [address] [facility] [place] [address] Advice Only Social History Tobacco Use Types Packs/Day Years Used Date Smoking Tobacco: Former Cigarettes 2 - 2003 Smokeless Tobacco: Never Alcohol Use Standard Drinks/Week Comments Yes 1 (1 standard drink = 0.6 oz pur e alcohol) 3 times a week [facility] Utilities Answer Date Recorded In the past 12 months has [employer], gas, oil, or water company threatened to shut off services in your home? No 01/12/2025 Social Connection and Isolation Panel Answer Date Recorded In a typical week, how many times do you talk on the phone with family, friends, or neighbors? Never 01/12/2025 Frequency of Social Gatherings with Friends and Family Not on file 01/12/2025 Attends [employer] Not on file 01/12 Active Member [...] Total Score - Questions 1-9 0 07/2024 [facility] - Occupational [...] any time in the past 12 m onths, were you homeless or living in a fpc (including now)? No 01/12/2025 Comments No Sex and Gender Information Value Date Recorded Sex Assigned at Not on file Legal Sex Female 8:04 PM CDT Gender Identity Not on file Sexual Orientation Not on file documented as of this encounter Miscellaneous Notes * Telephone Encounter - Corinne Foster - 05/20/2025 12:50 PM CDT Symptoms: Fever, Sore Throat, Earache Outcome: Transfer to administrative sales assistant queue Reason: Caller denied all higher acuity questions The caller accepted this outcome. Caller Denied: * Can't stand (unless normally can't stand) * Acting confused * Can't swallow saliva (drooling) * Trouble breathing through the mouth documented in this encounter Plan of Treatment Upcoming Encounters Date Type Department Care Team (Late st Contact Info) Description 07/21/2025 10:45 AM CDT Office Visit [facility] - Internal Medicine - [place] [address] [place] [address] Sasha Haile PAC [address] [place] [address] documented as of this encounter Visit Diagnoses Not on filedocumented in this encounter Additional Health Concerns Assessment Noted Time PHQ-9 Depression Total Score: 0 08/19/20 24 12:59 PM CDT documented as of this encounter Care Teams Sod Stripper Relationship Specialty Start Date End Date Sasha Haile, GEOVANNA [address] [place] [address] PCP - General Physician Edm Operator 01/20/24 Des York MD [address] [phone] Consulting Physician Endocrinology 08/28/23 Kalee Escoto APRN, SHAHRZAD [address] [place], [place] [id number] Nurse Practitioner Advanced Practice Nurse 09/08/24 Reyes Moralez MD [address] [address] Consulting Physician General Surgery 01/20/25 documented as of this encounter
--- OUTSIDE RECORDS SUMMARY | 2025-05-20 13:12 | XMS_ITS | Encounter Summary ---
Author Organization [facility] Address [address] [place] [address] Phone Care Team Providers Care Medical Appliance Maker Name Role Phone Des York MD Unavailable Eron Haile PAC Primary Care Pro vider Kalee Escoto APRN, BULK MAIL TECHNICIAN Unavailable Reyes Moralez MD Unavailable Reason for Visit * Reason Onset Date Comments Medication Refill 05/19/2025 Encounter Details Date Type Department Care Team (Late st Contact Info) Description 05/19/2025 Telephone [facility] - Family [facility] [address] [place] [address] Eron Haile, PAC [address] [place] [address] Medication Refill Social History Tobacco Use Types Packs/Day Years Used Date Smoking Tobacco: Former Cigarettes 2 005 - 2003 Smokeless Tobacco: Never Alcohol Use Standard Drinks/Week Comments Yes 1 (1 standard drink = 0.6 oz pur e alcohol) 3 times a week [facility] Utilities Answer Date Recorded In the past 12 months has [employer], gas, oil, or water company threatened to shut off services in your home? No 01/12/2025 Social Connection and Isolation Panel Answer Date Recorded In a typical week, how many times do you talk on the phone with family, friends, or neighbors? Never 01/12/2025 Frequency of Social Gatherings with Friends and Family Not on file 01/12/2025 Attends [employer] Not on file 01/12 Active Member [...] Total Score - Questions 1-9 0 07/2024 [facility] - Occupational Stress [...] any time in the past 12 m [facility], were you homeless or living in a senior care (including now)? No 01/12/2025 Comments No Sex and Gender Information Value Date Recorded Sex Assigned at Not on file Legal Sex Female 8:04 PM CDT Gender Identity Not on file Sexual Orientation Not on file documented as of this encounter Miscellaneous Notes * Telephone Encounter - Elda Gomez RN - 05/19/2025 9:34 AM CDT Please check with pt on who usually fills this for her? I do not see that eron has filled Thank you * Telephone Encounter - Emma Shaffer MA - 05/19/2025 7:54 AM CDT Message left on primary refill voice mail: Patient requesting a refill of Metoprolol Tartrate 50 mgtabs documented in this encounter Plan of Treatment Upcoming Encounters Date Type Department Care Team (Late st Contact Info) Description 07/21/2025 10:45 AM CDT Office Visit [facility] - Internal Medicine - [place] [address] [place] [address] Eron Haile PAC [address] [place] [address] documented as of this encounter Visit Diagnoses Not on filedocumented in this encounter Additional Health Concerns Assessment Noted Time PHQ-9 Depression Total Score: 0 08/19/20 24 12:59 PM CDT documented as of this encounter Care Teams Medical Appliance Maker Relationship Specialty Start Date End Date Eron Haile PAC [address] [place] [address] PCP - General Physician Extension Educator 01/20/24 Des York MD [address] [phone] Consulting Physician Endocrinology 08/28/23 Kalee Escoto APRN, BULK MAIL TECHNICIAN [address] [place] [address] Nurse Practitioner Advanced Practice Nurse 09/08/24 Reyes Moralez MD [address] [phone] Consulting Physician General Surgery 01/20/25 documented as of this encounter
--- NOTE | 2025-05-20 13:19 | ED.URI ---
HPI - URI/Sore Throat General Chief Complaint: Upper Respiratory Infection Stated Complaint: throat/no voice Time Seen by Provider: 05/20/25 13:27 Source: patient and RN notes reviewed Mode of arrival: ambulatory Limitations: no limitations History of Present Illness HPI Narrative: 69 y/o female presented for c/o nasal congestion and drainage, cough, bilateral ear pressure and throat pain. Onset one week.. Says she woke today with hoarse voice. Chest feels tight with coughing. Denies sob, wheezing, n/v/d/f/c. Taking cough med and claritin for symptoms. MD elicited complaint: cough Related Data Home Medications ?Medication ?Instructions ?Recorded ?Confirmed ?Last Taken ?Type metoprolol tartrate 50 mg tablet 50 mg PO BID 01/05/23 01/05/23 Unknown History bupropion HCl 150 mg 24 hr tablet, mg PO 05/20/25 Unknown History extended release levothyroxine 125 mcg tablet mcg 05/20/25 Unknown History omeprazole 20 mg capsule,delayed mg 05/20/25 Unknown History release sucralfate 1 gram tablet 05/20/25 Unknown History Allergies Allergy/AdvReac Type Severity Reaction Status Date / Time No Known Allergies Allergy Verified 05/20/25 13:16 Review of Systems Review of Systems: CONSTITUTIONAL: denies malaise, body aches, chills, sweats, fever EYES: Denies visual changes, redness, or discharge ENT: Reports rhinorrhea, congestion, sore throat CARDIOVASCULAR: Denies chest pain, palpitations, edema RESPIRATORY: Reports cough, post nasal drainage. Denies dyspnea GASTROINTESTINAL: Denies abdominal pain, nausea, vomiting, diarrhea SKIN: Denies rash NEUROLOGIC: Denies headache [facility] Past Medical History Medical History (Updated 05/20/25 @ 13:38 by Meeta Adamson, DIRECTOR OF BUSINESS APPLICATIONS) Hypertension Exam Narrative: GENERAL: well-appearing EYES: conjunctivae clear ENT: Mucous membranes moist. TM pearly pierre with dull light reflex bilaterally; no tragal tenderness. Hoarse voice. Oropharynx erythematous without lesions or exudate, tonsils 1+. no drooling, no trismus, uvula midline. No tripod positioning, muffled voice, soft palate or pharyngeal wall bulging NECK: Supple. No lymphadenopathy CHEST: Clear to auscultation, breath sounds equal. Rare splicing technician cough noted. No wheezing, rhonchi, rales, or stridor. No respiratory distress, speaks in full sentences. HEART: Regular rate and rhythm. SKIN: Warm, dry, no rash. NEURO: Alert and oriented x3. PSYCH: Normal mood and affect Course Course Emergency Course: Patient is aware of diagnosis, understands and agrees to treatment plan. Anticipatory guidance given. Patient agrees to follow-up as directed and is aware of reasons to seek care at the emergency department. Portions of this record may have been created with voice recognition software Level of Care: Express Care Visit Vital Signs Vital signs: reviewed MDM - URI/Sore Throat MDM Narrative Medical decision making narrative: Discussed physical exam findings c/w URI. Pt states she does not want Augmentin because it causes diarrhea. Pt also aware of elevated BP, stating she cannot get med while pcp is on leave. Advised supportive measures and signs/symptoms to go to the ER. Pt is appropriate for outpt treatment and f/u. Differential Diagnosis Differential diagnosis: Likely upper respiratory infection, sinusitis and viral infection Discharge Plan Discharge Clinical Impression: Upper respiratory infection Patient Disposition: Home Condition: Stable Instructions: Antibiotic Form, Upper Respiratory Infection (ED) Additional Instructions: Your blood pressure reading was elevated (above 120/80) please follow-up with your primary care provider for further evaluation and management. If you develop worsening Blood Pressure symptoms, (headache, vision changes, dizziness, vomiting, chest pain, etc) go to the ER. Call 911. Take antibiotic as directed Recommendations: Flonase spray and Zyrtec (or Claritin/Susan) over the counter Cough syrup may cause drowsiness; avoid driving or take it at night time. Coricidin HBP if you have hypertension Tylenol 1000mg every 8 hours as needed for pain/fever Symptomatic treatment includes: rest, push fluids, and increase humidity of the air at home. Follow up with your primary care provider in 1 week. Go to the ER for worsening symptoms or concerns. Patient Language: Luxembourgish Prescriptions: New prednisone 20 mg tablet 40 mg PO DAILY 5 Days Qty: 10 0RF doxycycline hyclate 100 mg tablet 100 mg PO BID 7 Days Qty: 14 0RF No Action metoprolol tartrate 50 mg tablet 50 mg PO BID sucralfate 1 gram tablet levothyroxine 125 mcg tablet omeprazole 20 mg capsule,delayed release(DR/EC) bupropion HCl 150 mg tablet extended release 24 hr PO Follow-up/Referrals: Mic,BOZENA Baez [Primary Care Provider] - Time of Disposition: 13:35
[2025-05-20 13:25] VITALS: BP 152/113; PULSE 96; RESP 18; TEMP 37.3; O2SAT 100
[2025-05-20 13:37] VITALS: BP 172/97
--- NOTE | 2025-05-20 13:45 | PC.NURSE ---
CALLED BOZENA ROMERO OFFICE AND STAFF REPORTS PT METOPROLOL REFILLED AT [facility] PER REQUEST TODAY. PT CALLED AND INFORMED TO HIDE MILL MAN WITH HER NEW RX FROM THIS VISIT.
== END 2025-05-20 13:37 | disposition home or self-care (01) ==
PROVIDERS: Emergency Provider Nurse Practitioner Family; PCP Physician Assistant
DX: J06.9 Acute upper respiratory infection, unspecified (principal); I10 Essential (primary) hypertension
CPT/HCPCS: 99213; G0463